=== PATIENT | female | born 1960 | race Caucasian/White ===

== ENCOUNTER → 2023-01-05 13:28 | Outpatient (CLI) | payer BC, SELFPAY ==
--- NOTE | 2023-01-05 13:30 | DI.MG.S_ITS ---
BILATERAL DIGITAL SCREENING MAMMOGRAM 3D/2D WITH CAD: 01/05/2023 CLINICAL: Routine screening. No prior exams were available for comparison. Both breasts are extremely dense, which lowers the sensitivity of mammography (category d />75% glandular tissue). Current study was also evaluated with a Computer Aided Detection (CAD) system. No significant masses, calcifications, or other findings are seen in either breast. IMPRESSION: NEGATIVE There is no mammographic evidence of malignancy. A 1 year screening mammogram is recommended. Based on the Tyrer Cuzick model (a risk assessment model) the patient's lifetime risk is 18.9% and her 10 year risk is 8.2%. According to the ACR, ACS, and NCCN guidelines, an annual breast MRI exam along with mammogram is recommended if the patient's lifetime risk is 20% or greater. This exam was interpreted at Station ID: [id number]. NOTE: For mammograms, a report in lay terms will be sent to the patient. Approximately 15% of breast malignancies will not be visualized mammographically. In the management of a palpable breast mass, a negative mammogram must not discourage biopsy of a clinically suspicious lesion. Electronically Signed By: Willian bradford/sarah:01/05/2023 17:53:37 letter sent: Normal Exam ACR BI-RADS Category 1: Negative [id number]
== END ==
PROVIDERS: PCP Family Medicine; Referring Provider Family Medicine; Visit Provider Family Medicine
DX: Z12.31 Encounter for screening mammogram for malignant neoplasm of breast (principal)
CPT/HCPCS: 77063; 77067

== ENCOUNTER → 2023-02-21 10:09 | Outpatient (CLI) | payer BC, SELFPAY ==
[2023-02-21 12:20] LABS: Add Manual Diff / Slide Review NO; Basophils Absolute Auto 0 /uL (0-100); Basophils Percent Auto 0.6 % (0-2); Eosinophils Absolute Auto 100 /uL (0-450); Hematocrit 37.3 % (36-46); Hemoglobin 12.4 g/dL (12.0-16.0); Lymphocytes Absolute Auto 1500 /uL (1100-4500); Lymphocytes Percent Auto 22.6 % (25-40); Mean Corpuscular HGB Conc 33.3 % (30-36); Mean Corpuscular Hemoglobin 29.1 PG (26-34); Mean Corpuscular Volume 87.4 fL (80-100); Monocytes Absolute Auto 400 /uL (0-900); Monocytes Percent Auto 6.2 % (3-14); Neutrophils Absolute Auto 4500 /uL (1500-7000); Neutrophils Percent Auto 68.6 % (50-75); Platelet Count 294 X10^3/uL (150-400); Red Blood Cell Count 4.27 X10^6/uL (4.0-5.2); Red Cell Distribution Width 13.9 % (11.6-14.8); White Blood Cell Count 6.5 X10^3/uL (4.5-11.0)
[2023-02-21 12:52] LABS: BUN Creatinine Ratio 21.8 (6-22); Blood Urea Nitrogen 17 mg/dL (7-17); Calcium 9.8 mg/dL (8.4-10.2); Carbon Dioxide 27 mmol/L (22-32); Chloride 102 mmol/L (98-107); Cholesterol 197 mg/dL (140-199); Estimated Glomerular Filt Rate > 60 mL/min (>60); Glucose 91 mg/dL (80-110); HDL Cholesterol 58 mg/dL (40-60); HEMOLYSIS < 15 (0-50); LDL Cholesterol Calculated 124 mg/dL (<100); Sodium 139 mmol/L (137-145); Triglycerides 77 mg/dL (35-150)
[2023-02-21 16:51] LABS: Vitamin D 25 Hydroxy (D3) 23.6 ng/mL (30.0-100.0)
[2023-02-22 15:47] LABS: Fecal Immunochemical Test Negative (Negative)
== END ==
PROVIDERS: PCP Family Medicine; Referring Provider Family Medicine; Visit Provider Family Medicine
DX: Z13.21 Encounter for screening for nutritional disorder (principal); Z13.220 Encounter for screening for lipoid disorders; Z12.11 Encounter for screening for malignant neoplasm of colon
CPT/HCPCS: 36415; 80048; 80061; 82274; 82306; 84443; 85025

== ENCOUNTER → 2023-07-06 12:20 | Outpatient (CLI) | payer BC, SELFPAY ==
--- NOTE | 2023-07-06 12:21 | DI.RAD.S_ITS ---
PROCEDURE: XR HIP W PEL IF DONE RA MIN 4V INDICATIONS: bilateral groin pain, decreased ROM TECHNIQUE: AP pelvis with lateral view(s) of the bilat hip(s). COMPARISON: None. FINDINGS: Bones: No fractures or dislocations. Pelvic ring appears intact. Severe bilateral hip joint space narrowing, subchondral sclerosis and mild flattening of the femoral heads with slight lateral subluxation, left worse than right. There is [id number] bilaterally. No suspicious bony lesions. Mild degenerative changes of the lower lumbar spine and bilateral SI joints. Soft tissues: The visualized bowel gas pattern is normal. No suspicious soft tissue calcifications. IMPRESSION: 1. No acute bony abnormality. 2. 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 Dictated by: Delmy Castillo M.D. on 07/06/2023 at 17:30 Approved by: Delmy Castillo M.D. on 07/06/2023 at 17:32
== END ==
LOC: RAD 12:21
PROVIDERS: Family Provider Family Medicine; PCP Family Medicine; Referring Provider Physician Assistant; Visit Provider Physician Assistant
DX: M47.816 Spondylosis without myelopathy or radiculopathy, lumbar region (principal); M47.818 Spondylosis without myelopathy or radiculopathy, sacral and sacrococcygeal region; R10.31 Right lower quadrant pain; R10.32 Left lower quadrant pain
CPT/HCPCS: 73522

== ENCOUNTER 2023-07-08 10:30 | Outpatient (RCR) | payer BC, SELFPAY ==
--- NOTE | 2023-06-03 18:06 | PT.OIE ---
Current Diagnoses Stiffness of right hip, not elsewhere classified (06/03/23) Stiffness of left hip, not elsewhere classified (06/03/23) Muscle weakness (generalized) (06/03/23) Segmental and somatic dysfunction of pelvic region (06/03/23) Other abnormalities of gait and mobility (06/03/23) Past Medical History (Last Updated 02/25/23 @ 11:56 by Artur Kc DO) Allergies (~1961) Asthma (~1966) Astigmatism of left eye Bilateral groin pain Eczema (~1961) Pelvic somatic dysfunction Vitamin D3 deficiency Past Surgical History (Last Reviewed 02/22/23 @ 16:29 by PAUL Rubalcava) Anesthesia History of colonoscopy (~2011) History of hand surgery (~2002) History of tonsillectomy and adenoidectomy (~1966) Visit Care Team Role Provider Type Artur Kc DO Attending Provider Physician Family Provider Primary Care Provider Referring Provider Specialty: [facility] Practice Address: [address] [place] [address] Email: Physical Therapy Initial Evaluation PT-OP-A Visit Information Start: 06/03/23 07:17 Freq: Status: Active Protocol: Document 06/03/23 09:01 LRN (Rec: 06/03/23 09:49 CLEMENCIAN [id number]) Out-Patient Physical Therapy Visit Information Visit Information Visit Type Initial Evaluation Visit Start Time 09:01 Visit Stop Time 09:47 Visit Number 1 Evaluation Information Evaluation Date 06/03/23 Precautions Precautions Allergies, Back pain, told as child she had a short RLE, but pt stopped wearing lift in her 20's. PT-OP-B Current Condition Start: 06/03/23 07:17 Freq: Status: Active Protocol: Document 06/03/23 09:01 LRN (Rec: 06/03/23 09:49 LRN [id number]) Current Condition History of Current Condition Onset Date Jan 2023 Current Complaints Mohit groin pain at crease of hips with walking, sit<>stand, bending of hips. History of Current Condition Intermittent pain in anterior hips with walking; constant pain with sit<>stand, ascending steps (less decending step) and squatting. Was told her bones are okay. Pt worked on herself with Pilates and Yoga in Nov and into Mar with daily exercise resulting in sometimes worsening of pain. Stopping exercise made it feel a little better than initial pain intensity. Pt states she is not able to walk normal and she is not walking as fast as she used to. Denies urinary leakage and constipation. In 2015 was told she had a slipped disc at L3-4 by Chiropractor and had full resolution of her R LE pain. As a child was told she had a short RLE, but she stopped wearing the lift in her 20's, because she felt the lift now made her R hip higher and without the lift she felt her hips were even. Prior Treatments and Tests None. No follow up appts with referring physician. Future Testing and Treatments Planned None. Developmental History Developmental History Went on her boat to [place] ( August-Dec) with spouse, then in Jan pain started in the anterior hips. Treatment Goals Patient/Caregiver Goals Pt goals: Sit<>stand w/o pain . Walk or ascend stairs w/o pain. HEP. Prior Functional Status Baseline Function- ADL's Independent Baseline Function- Mobility Independent Baseline Function- Gait No pain prior to Jan 2023 Baseline Function- Recreation/Hobbies Walked 6 miles x2, 3-4 x/week. Spouse noticed in October she waddled walking, which spouse thought was not her normal. Current Functional Impairments (Reported) Functional Limitations- ADL's Independent with activities but takes longer (walking, dressing, toileting) Functional Limitations- Mobility/Gait Discomfort with gait. Functional Limitations- Recreation/ Not doing any ex's. 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 Short RLE since child (L Iliac crest slightly higher in standing) PT-OP-C Subjective Start: 06/03/23 07:17 Freq: Status: Active Protocol: Document 06/03/23 09:01 CLEMENCIAN (Rec: 06/03/23 18:02 LRN [id number]) Patient Questionnaires Pelvic Pain and Urgency/Frequency Patient Symptom Scale Pelvic Pain Score 1 OP-PT Pain Assessment Location Anterior hips/groin Pain Location Details Mohit anterior hips at groin Intensity 4 Scale Used Numeric (0 - 10) Description Aching Frequency Intermittent Pain Duration while perform mostly hip flexion, ER, IR motions Pain Aggravating Factors Changing Position,Activity PT-OP-I Pelvic Floor Start: 06/03/23 07:17 Freq: Status: Active Protocol: Document 06/03/23 09:01 LRN (Rec: 06/03/23 09:49 LRN [id number]) Pelvic Floor Assessment Urine Other Urinary Symptoms None Bowel Bowel Movement Frequency Daily Cory Stool Chart Type 1-7 4 Comments Pelvic Floor Comments No palpable tenderness, tightness or muscle guarding of external perineum.. PT-OP-J Posture/Palpation/Skin Start: 06/03/23 07:17 Freq: Status: Active Protocol: Document 06/03/23 09:01 LRN (Rec: 06/03/23 09:49 LRN [id number]) Posture Evaluation Position Standing L-Spine Posture Increased Lordosis,Shifted Right Shoulder Posture (R) Elevated Scapula Posture (L) Elevated Pelvis Posture Anteriorly Tilted,(L) Iliac Crest Superior Weight Distribution Balanced Comments Posture Comments Atrophy of R christiano-scapular ms and increased tone of R UT appearing shoulder in elevation. Palpation Assessment Location Lower thoracic paraspinals Palpation Location R lower thoracic paraspinal ms Palpation Findings Soft Tissue Tightness Upper thoracic paraspinals Palpation Location Left Intrascapular ms. Palpation Findings Soft Tissue Tightness PT-OP-K Range of Motion Start: 06/03/23 07:17 Freq: Status: Active Protocol: Document 06/03/23 09:01 LRN (Rec: 06/03/23 09:49 LRN [id number]) Lumbar Spine Range of Motion Lumbar Spine Active Degrees Testing Position Standing Flexion 110 Extension 12 Rotation Left 30 Rotation Right 20 Lateral Flexion Left 15 Lateral Flexion Right 20 Hip Goniometric Range of Motion Hip Right Passive Testing Position Supine Flexion w/Knee Flexed 105 Abduction 30 Internal Rotation 10 External Rotation 30 Left Passive Testing Position Supine Flexion w/Knee Flexed 95 Abduction 15 Internal Rotation 3 External Rotation 25 PT-OP-M Strength Start: 06/03/23 07:17 Freq: Status: Active Protocol: Document 06/03/23 09:01 LRN (Rec: 06/03/23 09:49 LRN [id number]) Hip Strength Hip Manual Muscle Testing Right Extension (S1) 3 Fair Comments Strength is 3/5 except as indicated above. Left Extension (S1) 3 Fair Comments Strength is 3/5 except as indicated above. PT-OP-Q Treatments Start: 06/03/23 07:17 Freq: Status: Active Protocol: Document 06/03/23 09:01 LRN (Rec: 06/03/23 09:49 LRN [id number]) Self-Care/Home Management Treatment Education Other Education Discussed results of evaluation, and set goals, and plan of care (POC) with pt; therefore pt agreeable to goals and POC. PT-OP-T Assessment and Plan Start: 06/03/23 07:17 Freq: Status: Active Protocol: Document 06/03/23 09:01 LRN (Rec: 06/03/23 09:49 LRN [id number]) Physical Therapy Assessment Rehab Potential Rehabilitation Potential Good Evaluation Complexity Number of Personal Factors/Comorbidities 3 or More Number of Body Systems Impaired 4 or More Clinical Presentation at Evaluation Evolving Impairments Impairments Activity Tolerance,Gait,Pain, Posture,ROM,Soft Tissue Mobility,Strength,Transfers Goals Three Impairment Decreased hip ext strength and endurance. Impairment Hip extension strength is 3/5 bilaterally. Short Term Goal (STG) Improve hip extension strength to 5/5. Longterm Goal (LTG) Pt will be able to perform sit <>stand transfer hinging at the hip to elimnate pain with transfer. Two Impairment Decreased hip mobility resulting in pain with stair ambulation. Impairment Hip PROM (in deg's): Hip Flexion 95 L, 105 R; AB 15 L, 30 R; IR 3 L, 10 R; ER 25 L, 35 R. Short Term Goal (STG) Improve pt hip mobility with rotation and AB. Longterm Goal (LTG) Pt will be able to walk or ascend stairs w/o pain. HEP. One Impairment Pt lacks an independent self care HEP. Breast Splitter Goal (LTG) Pt will be independent in a self care HEP for hip and trunk mobility exercises, hip/ core strengthening, and return to an exercise program. Assessment Summary Assessment Pt is a 62 yo female who presents with no significant symptoms of PF dysfunction. Since pt felt she had not PF symptoms, evaluation was focused on her anterior hip pain. She presents with extremely limited hip mobility (flex, AB, ER, IR, L>R), along with decreased trunk R rot, L SB mobility and weakness with hip extension. Pain was not elicit with palpation of the anterior hip joint. She has standing posture changes and appears to demonstrate a slightly shorter RLE. The pt is having bilateral anterior hip pain with any flexion of the hips, passively as well as reproduction of pain with hip ROM of the restricted movements as previously mentioned. If the pt is not able to improve her hip mobility and therefore lessen her hip pain, further imaging for possible mechanical changes would be appropriate. The pt will benefit from skilled physical therapy to work towards achieving the above stated goals. Physical Therapy Plan Frequency and Duration Frequency of Treatment 1x/Week Duration of treatment (weeks) 12 Plan of Care Start Date 06/03/23 Plan of Care End Date 09/01/23 Therapeutic Interventions Therapeutic Interventions Home Exercise Program,Joint Mobilizations,Manual Therapy, Neuromuscular Re-education, Self-Care/Home Management,Soft Tissue Mobilization, Therapeutic Activities, Therapeutic Exercises Modalities Biofeedback,Cold Pack/Ice Massage,Electric Stimulation, Hot Packs Other Referrals/Consults Referrals/Consults Recommended Imaging of hip joints if physical therapy does not reduce her pain. Next Visit Focus/Plan Next Visit Plan Assess pt's pedal pulses. Assess for pelvic obliquity. Stretch into trunk R rot, L SB & ROM for hip AD, IR>ER (L>R) , and improve hip flexion. Strengthen hip extensors. POC: Rehab for stiffness of hip with pain on hip flexion positioning. Modalities: MH/Ice for pain management at end of treatment . Manual: JMT to hips and pelvic obliquity correction if needed, manual stretch to hip AD, LB, Gluts, OI, lateral hips. Sacral balancing if needed. Ex & HEP: trunk, hips.
--- NOTE | 2023-06-03 18:06 | PT.OPPOC ---
Physical, Occupational & Speech Therapy At [facility] Current Diagnoses Stiffness of right hip, not elsewhere classified (06/03/23) Stiffness of left hip, not elsewhere classified (06/03/23) Muscle weakness (generalized) (06/03/23) Segmental and somatic dysfunction of pelvic region (06/03/23) Other abnormalities of gait and mobility (06/03/23) Visit Care Team Role Provider Type Artur Kc DO Attending Provider Physician Family Provider Primary Care Provider Referring Provider Specialty: Family Practice Address: [address] [place] [address], [facility] Email: Plan Of Care PT-OP-T Assessment and Plan Start: 06/03/23 07:17 Freq: Status: Active Protocol: Document 06/03/23 09:01 LRN (Rec: 06/03/23 09:49 LRN [id number]) Physical Therapy Assessment Rehab Potential Rehabilitation Potential Good Evaluation Complexity Number of Personal Factors/Comorbidities 3 or More Number of Body Systems Impaired 4 or More Clinical Presentation at Evaluation Evolving Impairments Impairments Activity Tolerance,Gait,Pain, Posture,ROM,Soft Tissue Mobility,Strength,Transfers Goals Three Impairment Decreased hip ext strength and endurance. Impairment Hip extension strength is 3/5 bilaterally. Short Term Goal (STG) Improve hip extension strength to 5/5. Fdc Goal (LTG) Pt will be able to perform sit <>stand transfer hinging at the hip to elimnate pain with transfer. Two Impairment Decreased hip mobility resulting in pain with stair ambulation. Impairment Hip PROM (in deg's): Hip Flexion 95 L, 105 R; AB 15 L, 30 R; IR 3 L, 10 R; ER 25 L, 35 R. Short Term Goal (STG) Improve pt hip mobility with rotation and AB. Silo Man Goal (LTG) Pt will be able to walk or ascend stairs w/o pain. HEP. One Impairment Pt lacks an independent self care HEP. Fdc Goal (LTG) Pt will be independent in a self care HEP for hip and trunk mobility exercises, hip/ core strengthening, and return to an exercise program. Assessment Summary Assessment Pt is a 62 yo female who presents with no significant symptoms of PF dysfunction. Since pt felt she had not PF symptoms, evaluation was focused on her anterior hip pain. She presents with extremely limited hip mobility (flex, AB, ER, IR, L>R), along with decreased trunk R rot, L SB mobility and weakness with hip extension. Pain was not elicit with palpation of the anterior hip joint. She has standing posture changes and appears to demonstrate a slightly shorter RLE. The pt is having bilateral anterior hip pain with any flexion of the hips, passively as well as reproduction of pain with hip ROM of the restricted movements as previously mentioned. If the pt is not able to improve her hip mobility and therefore lessen her hip pain, further imaging for possible mechanical changes would be appropriate. The pt will benefit from skilled physical therapy to work towards achieving the above stated goals. Physical Therapy Plan Frequency and Duration Frequency of Treatment 1x/Week Duration of treatment (weeks) 12 Plan of Care Start Date 06/03/23 Plan of Care End Date 09/01/23 Therapeutic Interventions Therapeutic Interventions Home Exercise Program,Joint Mobilizations,Manual Therapy, Neuromuscular Re-education, Self-Care/Home Management,Soft Tissue Mobilization, Therapeutic Activities, Therapeutic Exercises Modalities Biofeedback,Cold Pack/Ice Massage,Electric Stimulation, Hot Packs Other Referrals/Consults Referrals/Consults Recommended Imaging of hip joints if physical therapy does not reduce her pain. Next Visit Focus/Plan Next Visit Plan Assess pt's pedal pulses. Assess for pelvic obliquity. Stretch into trunk R rot, L SB & ROM for hip AD, IR>ER (L>R) , and improve hip flexion. Strengthen hip extensors. POC: Rehab for stiffness of hip with pain on hip flexion positioning. Modalities: MH/Ice for pain management at end of treatment . Manual: JMT to hips and pelvic obliquity correction if needed, manual stretch to hip AD, LB, Gluts, OI, lateral hips. Sacral balancing if needed. Ex & HEP: trunk, hips. Plan of Care Dates Plan of Care Start Date 06/03/23 Plan of Care End Date 09/01/23 Electronically Signed by: Vangie Regan, PT 06/03/23 3215 If you are in agreement with this Plan of Care, please return a signed and dated copy. I have reviewed this Plan of Care and certify that the skilled therapy services above are required to meet the patient?s needs. Physician Signature Date Printed Name and Credentials Clinical Instructor Signature Printed Name and Credentials
--- NOTE | 2023-06-06 15:45 | PT.OTN ---
Current Diagnoses Stiffness of right hip, not elsewhere classified (06/06/23) Stiffness of left hip, not elsewhere classified (06/06/23) Muscle weakness (generalized) (06/06/23) Segmental and somatic dysfunction of pelvic region (06/06/23) Other abnormalities of gait and mobility (06/06/23) Physical Therapy Treatment Note PT-OP-A Visit Information Start: 06/03/23 07:17 Freq: Status: Active Protocol: Document 06/06/23 14:31 LRN (Rec: 06/06/23 15:29 LRN [id number]) Out-Patient Physical Therapy Visit Information Visit Information Visit Type Treatment Note Visit Start Time 14:31 Visit Stop Time 15:09 Visit Number 2 Evaluation Information Evaluation Date 06/03/23 Precautions Precautions Allergies, Back pain, told as child she had a short RLE, but pt stopped wearing lift in her 20's. PT-OP-B Current Condition Start: 06/03/23 07:17 Freq: Status: Active Protocol: Document 06/03/23 09:01 LRN (Rec: 06/03/23 09:49 LRN [id number]) Current Condition History of Current Condition Onset Date Jan 2023 Current Complaints Mohit groin pain at crease of hips with walking, sit<>stand, bending of hips. History of Current Condition Intermittent pain in anterior hips with walking; constant pain with sit<>stand, ascending steps (less decending step) and squatting. Was told her bones are okay. Pt worked on herself with Pilates and Yoga in Feb and into Mar with daily exercise resulting in sometimes worsening of pain. Stopping exercise made it feel a little better than initial pain intensity. Pt states she is not able to walk normal and she is not walking as fast as she used to. Denies urinary leakage and constipation. In 2015 was told she had a slipped disc at L3-4 by Chiropractor and had full resolution of her R LE pain. As a child was told she had a short RLE, but she stopped wearing the lift in her 20's, because she felt the lift now made her R hip higher and without the lift she felt her hips were even. Prior Treatments and Tests None. No follow up appts with referring physician. Future Testing and Treatments Planned None. Developmental History Developmental History Went on her boat to [place] ( August-Dec) with spouse, then in Jan pain started in the anterior hips. Treatment Goals Patient/Caregiver Goals Pt goals: Sit<>stand w/o pain . Walk or ascend stairs w/o pain. HEP. Prior Functional Status Baseline Function- ADL's Independent Baseline Function- Mobility Independent Baseline Function- Gait No pain prior to Jan 2023 Baseline Function- Recreation/Hobbies Walked 6 miles x2, 3-4 x/week. Spouse noticed in October she waddled walking, which spouse thought was not her normal. Current Functional Impairments (Reported) Functional Limitations- ADL's Independent with activities but takes longer (walking, dressing, toileting) Functional Limitations- Mobility/Gait Discomfort with gait. Functional Limitations- Recreation/ Not doing any ex's. 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 PT-OP-I Pelvic Floor Start: 06/03/23 07:17 Freq: Status: Active Protocol: Document 06/06/23 14:31 LRN (Rec: 06/06/23 15:29 LRN [id number]) Pelvic Floor Assessment Pelvic Clock Pelvic Clock Other No tenderness noted around the PF clock. Perineal Descent Resting Absent Bearing Absent Contraction Ability Manual Muscle Testing Left 0 Manual Muscle Testing Right 0 Manual Muscle Testing Anterior 1 Manual Muscle Testing Posterior 0 Muscle Endurance (Seconds) 0 Number of Quick Contractions In 10 0 Seconds PT-OP-J Posture/Palpation/Skin Start: 06/03/23 07:17 Freq: Status: Active Protocol: Document 06/03/23 09:01 LRN (Rec: 06/03/23 09:49 LRN [id number]) Posture Evaluation Position Standing L-Spine Posture Increased Lordosis,Shifted Right Shoulder Posture (R) Elevated Scapula Posture (L) Elevated Pelvis Posture Anteriorly Tilted,(L) Iliac Crest Superior Weight Distribution Balanced Comments Posture Comments Atrophy of R christiano-scapular ms and increased tone of R UT appearing shoulder in elevation. Palpation Assessment Location Lower thoracic paraspinals Palpation Location R lower thoracic paraspinal ms Palpation Findings Soft Tissue Tightness Upper thoracic paraspinals Palpation Location Left Intrascapular ms. Palpation Findings Soft Tissue Tightness PT-OP-K Range of Motion Start: 06/03/23 07:17 Freq: Status: Active Protocol: Document 06/03/23 09:01 LRN (Rec: 06/03/23 09:49 LRN [id number]) Lumbar Spine Range of Motion Lumbar Spine Active Degrees Testing Position Standing Flexion 110 Extension 12 Rotation Left 30 Rotation Right 20 Lateral Flexion Left 15 Lateral Flexion Right 20 Hip Goniometric Range of Motion Hip Right Passive Testing Position Supine Flexion w/Knee Flexed 105 Abduction 30 Internal Rotation 10 External Rotation 30 Left Passive Testing Position Supine Flexion w/Knee Flexed 95 Abduction 15 Internal Rotation 3 External Rotation 25 PT-OP-M Strength Start: 06/03/23 07:17 Freq: Status: Active Protocol: Document 06/03/23 09:01 LRN (Rec: 06/03/23 09:49 LRN [id number]) Hip Strength Hip Manual Muscle Testing Right Extension (S1) 3 Fair Comments Strength is 3/5 except as indicated above. Left Extension (S1) 3 Fair Comments Strength is 3/5 except as indicated above. PT-OP-Q Treatments Start: 06/03/23 07:17 Freq: Status: Active Protocol: Document 06/06/23 14:31 LRN (Rec: 06/06/23 15:29 LRN [id number]) Therapeutic Exercises Supine Exercises Long Hold Kegels Supine Exercise Name Long Hold PF contractions Reps/Minutes 3x Comments VCs to not clinch gluteals or abdominal ms Quick Kegels Supine Exercise Name Quick PF contractions Reps/Minutes 10x Comments VCs to not clinch gluteals or abdominal ms Hip ER stretch Supine Exercise Name BKFO w/pillow under thigh. Side bilateral Reps/Minutes 1' holds Comments Phys & VC for gentle stretch with UE's relaxed breathe to relax into stretc Lateral Hip stretch Supine Exercise Name Lateral Hip stretch Side bilateral Reps/Minutes 1' holds Comments Phys & VC for gentle stretch with UE's relaxed breathe to relax into stretc KTC stretch Supine Exercise Name KTC stretch Side bilateral Reps/Minutes 1' holds Comments Much cuing as to hand placement and to relax deltoids while doing stretch. Sitting Exercises Posture training Sitting Exercise Name Posture training for neutral spine to correct L/S R shift. Reps/Minutes 10' Comments Cued to correct L/S shift R and shoulder levels. Not able to maintain. Self-Care/Home Management Treatment Education Patient Education Home Exercise Program Activities Self-Care/Home Management Activities I/S pt in HEP: KTC, lateral hip & BKFO (hip ER) stretches. PT-OP-T Assessment and Plan Start: 06/03/23 07:17 Freq: Status: Active Protocol: Document 06/06/23 14:31 LRN (Rec: 06/06/23 15:29 LRN [id number]) Physical Therapy Assessment Rehab Potential Rehabilitation Potential Good Evaluation Complexity Number of Personal Factors/Comorbidities 3 or More Number of Body Systems Impaired 4 or More Clinical Presentation at Evaluation Evolving Impairments Impairments Activity Tolerance,Gait,Pain, Posture,ROM,Soft Tissue Mobility,Strength,Transfers Goals Four Impairment PF weakness Short Term Goal (STG) Improve awareness of proper PF contraction, with pt able to perform a contraction in isolation of substitute muscles. STG Duration 08/05/23 Data Security Administrator Goal (LTG) Improve PF contraction strength to have palpable contraction around the PF clock of 2/5. LTG Duration 09/01/23 Three Impairment Decreased hip ext strength and endurance. Impairment Hip extension strength is 3/5 bilaterally. Short Term Goal (STG) Improve hip extension strength to 5/5. STG Duration 08/05/23 Mcc Goal (LTG) Pt will be able to perform sit <>stand transfer hinging at the hip to elimnate pain with transfer. LTG Duration 09/01/23 Two Impairment Decreased hip mobility resulting in pain with stair ambulation. Impairment Hip PROM (in deg's): Hip Flexion 95 L, 105 R; AB 15 L, 30 R; IR 3 L, 10 R; ER 25 L, 35 R. Short Term Goal (STG) Improve pt hip mobility with rotation and AB. STG Duration 08/05/23 Mcc Goal (LTG) Pt will be able to walk or ascend stairs w/o pain. HEP. LTG Duration 09/01/23 One Impairment Pt lacks an independent self care HEP. Data Security Administrator Goal (LTG) Pt will be independent in a self care HEP for hip and trunk mobility exercises, hip/ core strengthening, and return to an exercise program. LTG Duration 09/01/23 Assessment Summary Assessment Pt is a 62 yo female who presents with no significant symptoms of PF dysfunction, although today with digital exam of her PF it appears that she is very weak. She is using substitute muscles to get a PF contraction of minimal onset. Because she had no PF symptoms pt focus of therapy is on her bilateral anterior hip pain. Pt posture is mildly changed with a R lateral shift of her L/S in sit/stand, probably due to a shortened R LE as she was diagnosed as child. The pt is unable to maintain posture when postural corrections are applied. Pt appears to be very aggressive with exercise as she noted she tried walking with greater stride and faster after last session resulting in increased mohit hip pain. As previouisly noted, she is extremely limited with hip mobility (flex, AB, ER, IR , L>R), along with decreased trunk R rot, L SB mobility and weakness with hip extension. She does appear to have a R innominate inflare. Pt nees to be gentle w/stretches and not overstretch into pain in order to progress. Physical Therapy Plan Frequency and Duration Frequency of Treatment 1x/Week Duration of treatment (weeks) 12 Plan of Care Start Date 06/03/23 Plan of Care End Date 09/01/23 Therapeutic Interventions Therapeutic Interventions Home Exercise Program,Joint Mobilizations,Manual Therapy, Neuromuscular Re-education, Self-Care/Home Management,Soft Tissue Mobilization, Therapeutic Activities, Therapeutic Exercises Modalities Biofeedback,Cold Pack/Ice Massage,Electric Stimulation, Hot Packs Other Referrals/Consults Referrals/Consults Recommended If the pt is not able to gain ability to get a PF contraction, EMG assessment of sacral nerves (Pudendal nerve ) would be recommended. Next Visit Focus/Plan Next Note Type Treatment Note Next Visit Plan Assess pt's pedal pulses. Assess response to stretches and correct pelvic obliquity. Issue HEP: KTC, & L>R Lat hip & BKFO stretch (IR>ER). Add hip AD stretch, & trunk R rot, L SB. Strengthen hip extensors. EStim of PF for awareness training. POC: Rehab for stiffness of hip with pain on hip flexion positioning. PF rehab for strengthening. Modalities: MH/Ice for pain management at end of treatment if pt not doing at home. Manual: JMT to hips and pelvic obliquity correction (R innomin inflare) and Sacral balancing, manual stretch to hip AD, LB, Gluts, OI, lateral hips. Ex & HEP: trunk, hips.
--- NOTE | 2023-06-09 10:23 | PT.OTN ---
Current Diagnoses Stiffness of right hip, not elsewhere classified (06/09/23) Stiffness of left hip, not elsewhere classified (06/09/23) Muscle weakness (generalized) (06/09/23) Segmental and somatic dysfunction of pelvic region (06/09/23) Other abnormalities of gait and mobility (06/09/23) Physical Therapy Treatment Note PT-OP-A Visit Information Start: 06/03/23 07:17 Freq: Status: Active Protocol: Document 06/09/23 07:31 LRN (Rec: 06/09/23 08:18 LRN [id number]) Out-Patient Physical Therapy Visit Information Visit Information Visit Type Treatment Note Visit Start Time 07:31 Visit Stop Time 08:13 Visit Number 3 Evaluation Information Evaluation Date 06/03/23 Precautions Precautions Allergies, Back pain, told as child she had a short RLE, but pt stopped wearing lift in her 20's. PT-OP-B Current Condition Start: 06/03/23 07:17 Freq: Status: Active Protocol: Document 06/03/23 09:01 LRN (Rec: 06/03/23 09:49 LRN [id number]) Current Condition History of Current Condition Onset Date Jan 2023 Current Complaints Mohit groin pain at crease of hips with walking, sit<>stand, bending of hips. History of Current Condition Intermittent pain in anterior hips with walking; constant pain with sit<>stand, ascending steps (less decending step) and squatting. Was told her bones are okay. Pt worked on herself with Pilates and Yoga in Feb and into Mar with daily exercise resulting in sometimes worsening of pain. Stopping exercise made it feel a little better than initial pain intensity. Pt states she is not able to walk normal and she is not walking as fast as she used to. Denies urinary leakage and constipation. In 2015 was told she had a slipped disc at L3-4 by Chiropractor and had full resolution of her R LE pain. As a child was told she had a short RLE, but she stopped wearing the lift in her 20's, because she felt the lift now made her R hip higher and without the lift she felt her hips were even. Prior Treatments and Tests None. No follow up appts with referring physician. Future Testing and Treatments Planned None. Developmental History Developmental History Went on her boat to [place] ( August-Dec) with spouse, then in Jan pain started in the anterior hips. Treatment Goals Patient/Caregiver Goals Pt goals: Sit<>stand w/o pain . Walk or ascend stairs w/o pain. HEP. Prior Functional Status Baseline Function- ADL's Independent Baseline Function- Mobility Independent Baseline Function- Gait No pain prior to Jan 2023 Baseline Function- Recreation/Hobbies Walked 6 miles x2, 3-4 x/week. Spouse noticed in October she waddled walking, which spouse thought was not her normal. Current Functional Impairments (Reported) Functional Limitations- ADL's Independent with activities but takes longer (walking, dressing, toileting) Functional Limitations- Mobility/Gait Discomfort with gait. Functional Limitations- Recreation/ Not doing any ex's. 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 Understands how to do the KTC stretch keeping elbows in now. PT-OP-I Pelvic Floor Start: 06/03/23 07:17 Freq: Status: Active Protocol: Document 06/06/23 14:31 LRN (Rec: 06/06/23 15:29 LRN [id number]) Pelvic Floor Assessment Pelvic Clock Pelvic Clock Other No tenderness noted around the PF clock. Perineal Descent Resting Absent Bearing Absent Contraction Ability Manual Muscle Testing Left 0 Manual Muscle Testing Right 0 Manual Muscle Testing Anterior 1 Manual Muscle Testing Posterior 0 Muscle Endurance (Seconds) 0 Number of Quick Contractions In 10 0 Seconds PT-OP-J Posture/Palpation/Skin Start: 06/03/23 07:17 Freq: Status: Active Protocol: Document 06/03/23 09:01 LRN (Rec: 06/03/23 09:49 LRN [id number]) Posture Evaluation Position Standing L-Spine Posture Increased Lordosis,Shifted Right Shoulder Posture (R) Elevated Scapula Posture (L) Elevated Pelvis Posture Anteriorly Tilted,(L) Iliac Crest Superior Weight Distribution Balanced Comments Posture Comments Atrophy of R christiano-scapular ms and increased tone of R UT appearing shoulder in elevation. Palpation Assessment Location Lower thoracic paraspinals Palpation Location R lower thoracic paraspinal ms Palpation Findings Soft Tissue Tightness Upper thoracic paraspinals Palpation Location Left Intrascapular ms. Palpation Findings Soft Tissue Tightness PT-OP-K Range of Motion Start: 06/03/23 07:17 Freq: Status: Active Protocol: Document 06/03/23 09:01 LRN (Rec: 06/03/23 09:49 LRN [id number]) Lumbar Spine Range of Motion Lumbar Spine Active Degrees Testing Position Standing Flexion 110 Extension 12 Rotation Left 30 Rotation Right 20 Lateral Flexion Left 15 Lateral Flexion Right 20 Hip Goniometric Range of Motion Hip Right Passive Testing Position Supine Flexion w/Knee Flexed 105 Abduction 30 Internal Rotation 10 External Rotation 30 Left Passive Testing Position Supine Flexion w/Knee Flexed 95 Abduction 15 Internal Rotation 3 External Rotation 25 PT-OP-M Strength Start: 06/03/23 07:17 Freq: Status: Active Protocol: Document 06/03/23 09:01 LRN (Rec: 06/03/23 09:49 LRN [id number]) Hip Strength Hip Manual Muscle Testing Right Extension (S1) 3 Fair Comments Strength is 3/5 except as indicated above. Left Extension (S1) 3 Fair Comments Strength is 3/5 except as indicated above. PT-OP-Q Treatments Start: 06/03/23 07:17 Freq: Status: Active Protocol: Document 06/09/23 07:31 LRN (Rec: 06/09/23 08:18 LRN [id number]) Cardio Equipment Recumbent Stepper (Sci-Fit) Duration (Minutes) 5 Resistance 1 Seat Position 13 Other Extra time for set up. Therapeutic Exercises Supine Exercises Hip ER stretch Supine Exercise Name BKFO w/pillow under thigh. Side bilateral Reps/Minutes 1' holds Comments Phys & VC for gentle stretch with UE's relaxed breathe to relax into stretc Lateral Hip stretch Supine Exercise Name Lateral Hip stretch Side bilateral Reps/Minutes 1' holds Comments VC to not let trunk rotate. KTC stretch Supine Exercise Name KTC stretch Side bilateral Reps/Minutes 1' holds Comments Much cuing as to hand placement and to relax deltoids while doing stretch. Sidelying Exercises Open book stretch Sidelying Exercise Name Open book stretch to R only at this time - vc I/S for HEP Side right Reps/Minutes 7' Standing Exercises R rot Standing Exercise Name R trunk rot Reps/Minutes 1' Comments Cued to not extend back and not over rotate causing L/S ext. L SB Standing Exercise Name Trunk L SB: Cued to SB L or lean against wall with R side and shift hip R. Reps/Minutes 3' Comments Extra time to answer all pt's questions regarding positioning for stretch. Other Exercises Hip flexor active stretch Other Exercise Name Walking - Hip flexor active stretch Side bilateral Reps/Minutes 5' Comments Clicking in L hip at start of swing thru phase. Manual Therapy Treatment Soft Tissue Mobilization Core Body Location R Lateral trunk stretching rotation. Mobilization Type Strumming Intensity/Depth Moderate Body Position Supine Joint Mobilizations Pelvis Joint Pelvic jts Direction Correcting L outflare and R inflare correction needed. Body Position Supine PT-OP-T Assessment and Plan Start: 06/03/23 07:17 Freq: Status: Active Protocol: Document 06/09/23 07:31 LRN (Rec: 06/09/23 08:18 LRN [id number]) Physical Therapy Assessment Goals Four Impairment PF weakness Short Term Goal (STG) Improve awareness of proper PF contraction, with pt able to perform a contraction in isolation of substitute muscles. STG Duration 08/05/23 Fpc Goal (LTG) Improve PF contraction strength to have palpable contraction around the PF clock of 2/5. LTG Duration 09/01/23 Three Impairment Decreased hip ext strength and endurance. Impairment Hip extension strength is 3/5 bilaterally. Short Term Goal (STG) Improve hip extension strength to 5/5. STG Duration 08/05/23 Fpc Goal (LTG) Pt will be able to perform sit <>stand transfer hinging at the hip to elimnate pain with transfer. LTG Duration 09/01/23 Two Impairment Decreased hip mobility resulting in pain with stair ambulation. Impairment Hip PROM (in deg's): Hip Flexion 95 L, 105 R; AB 15 L, 30 R; IR 3 L, 10 R; ER 25 L, 35 R. Short Term Goal (STG) Improve pt hip mobility with rotation and AB. STG Duration 08/05/23 Lead Technologist In [employer] Goal (LTG) Pt will be able to walk or ascend stairs w/o pain. HEP. LTG Duration 09/01/23 One Impairment Pt lacks an independent self care HEP. Fpc Goal (LTG) Pt will be independent in a self care HEP for hip and trunk mobility exercises, hip/ core strengthening, and return to an exercise program. 06/08/23: I/S in HEP: hip mobility (flex, AB, ER, IR, L> R), sidelie trunk R rot, and standing L SB (also hip shift R against wall). LTG Duration 09/01/23 progressed 06/08/23 Assessment Summary Assessment 62 yo female w/PF weakness and mohit anterior hip pain, probably due to is extremely limited hip mobility (flex, AB , ER, IR, L>R), and decreased trunk R rot, L SB mobility and weakness with hip extension. She has crepitus of the hips with clicking in the L hip with gait (start of swing thru phase), and when she lifts her L>R leg (once in awhile on the R). Pt tends to be aggressive with stretches; therefore has poor body awareness while exercising. Physical Therapy Plan Frequency and Duration Frequency of Treatment 1x/Week Duration of treatment (weeks) 12 Plan of Care Start Date 06/03/23 Plan of Care End Date 09/01/23 Next Visit Focus/Plan Next Note Type Treatment Note Next Visit Plan Assess pt's pedal pulses. Assess response to correction of pelvic obliquity (inflare on R). Issue HEP: KTC, & L>R Lat hip & BKFO stretch (IR>ER) , open book and trunk L SB/R rot stretches. Add hip AD stretch. Strengthen hip extensors. EStim of PF for awareness training. POC: Rehab for stiffness of hip with pain on hip flexion positioning. PF rehab for strengthening. Modalities: MH/Ice for pain management at end of treatment if pt not doing at home. Manual: JMT to hips and pelvic obliquity correction (R innomin inflare) and Sacral balancing, manual stretch to hip AD, LB, Gluts, OI, lateral hips. Ex & HEP: trunk, hips.
--- NOTE | 2023-06-14 09:28 | PT.OTN ---
Current Diagnoses Stiffness of right hip, not elsewhere classified (06/14/23) Stiffness of left hip, not elsewhere classified (06/14/23) Muscle weakness (generalized) (06/14/23) Segmental and somatic dysfunction of pelvic region (06/14/23) Other abnormalities of gait and mobility (06/14/23) Physical Therapy Treatment Note PT-OP-A Visit Information Start: 06/03/23 07:17 Freq: Status: Active Protocol: Document 06/14/23 07:30 LRN (Rec: 06/14/23 08:17 LRN [id number]) Out-Patient Physical Therapy Visit Information Visit Information Visit Type Treatment Note Visit Start Time 07:30 Visit Stop Time 08:15 Visit Number 4 Evaluation Information Evaluation Date 06/03/23 Precautions Precautions Allergies, Back pain, told as child she had a short RLE, but pt stopped wearing lift in her 20's. PT-OP-B Current Condition Start: 06/03/23 07:17 Freq: Status: Active Protocol: Document 06/03/23 09:01 LRN (Rec: 06/03/23 09:49 LRN [id number]) Current Condition History of Current Condition Onset Date Jan 2023 Current Complaints Mohit groin pain at crease of hips with walking, sit<>stand, bending of hips. History of Current Condition Intermittent pain in anterior hips with walking; constant pain with sit<>stand, ascending steps (less decending step) and squatting. Was told her bones are okay. Pt worked on herself with Pilates and Yoga in Feb and into Mar with daily exercise resulting in sometimes worsening of pain. Stopping exercise made it feel a little better than initial pain intensity. Pt states she is not able to walk normal and she is not walking as fast as she used to. Denies urinary leakage and constipation. In 2015 was told she had a slipped disc at L3-4 by Chiropractor and had full resolution of her R LE pain. As a child was told she had a short RLE, but she stopped wearing the lift in her 20's, because she felt the lift now made her R hip higher and without the lift she felt her hips were even. Prior Treatments and Tests None. No follow up appts with referring physician. Future Testing and Treatments Planned None. Developmental History Developmental History Went on her boat to [place] ( August-Dec) with spouse, then in Jan pain started in the anterior hips. Treatment Goals Patient/Caregiver Goals Pt goals: Sit<>stand w/o pain . Walk or ascend stairs w/o pain. HEP. Prior Functional Status Baseline Function- ADL's Independent Baseline Function- Mobility Independent Baseline Function- Gait No pain prior to Jan 2023 Baseline Function- Recreation/Hobbies Walked 6 miles x2, 3-4 x/week. Spouse noticed in October she waddled walking, which spouse thought was not her normal. Current Functional Impairments (Reported) Functional Limitations- ADL's Independent with activities but takes longer (walking, dressing, toileting) Functional Limitations- Mobility/Gait Discomfort with gait. Functional Limitations- Recreation/ Not doing any ex's. 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 Short RLE since child (L Iliac crest slightly higher in standing) PT-OP-C Subjective Start: 06/03/23 07:17 Freq: Status: Active Protocol: Document 06/14/23 07:30 LRN (Rec: 06/14/23 08:17 LRN [id number]) OP-PT Subjective Patient Comments Patient Comments Feels she has more hip AB mobility. States she has transitioned to wearing her RLE shoe lift only when going out. LBP is at a norm, felt it a little more when starting hip stretches. PT-OP-I Pelvic Floor Start: 06/03/23 07:17 Freq: Status: Active Protocol: Document 06/06/23 14:31 LRN (Rec: 06/06/23 15:29 LRN [id number]) Pelvic Floor Assessment Pelvic Clock Pelvic Clock Other No tenderness noted around the PF clock. Perineal Descent Resting Absent Bearing Absent Contraction Ability Manual Muscle Testing Left 0 Manual Muscle Testing Right 0 Manual Muscle Testing Anterior 1 Manual Muscle Testing Posterior 0 Muscle Endurance (Seconds) 0 Number of Quick Contractions In 10 0 Seconds PT-OP-J Posture/Palpation/Skin Start: 06/03/23 07:17 Freq: Status: Active Protocol: Document 06/03/23 09:01 LRN (Rec: 06/03/23 09:49 LRN [id number]) Posture Evaluation Position Standing L-Spine Posture Increased Lordosis,Shifted Right Shoulder Posture (R) Elevated Scapula Posture (L) Elevated Pelvis Posture Anteriorly Tilted,(L) Iliac Crest Superior Weight Distribution Balanced Comments Posture Comments Atrophy of R christiano-scapular ms and increased tone of R UT appearing shoulder in elevation. Palpation Assessment Location Lower thoracic paraspinals Palpation Location R lower thoracic paraspinal ms Palpation Findings Soft Tissue Tightness Upper thoracic paraspinals Palpation Location Left Intrascapular ms. Palpation Findings Soft Tissue Tightness PT-OP-K Range of Motion Start: 06/03/23 07:17 Freq: Status: Active Protocol: Document 06/03/23 09:01 LRN (Rec: 06/03/23 09:49 LRN [id number]) Lumbar Spine Range of Motion Lumbar Spine Active Degrees Testing Position Standing Flexion 110 Extension 12 Rotation Left 30 Rotation Right 20 Lateral Flexion Left 15 Lateral Flexion Right 20 Hip Goniometric Range of Motion Hip Right Passive Testing Position Supine Flexion w/Knee Flexed 105 Abduction 30 Internal Rotation 10 External Rotation 30 Left Passive Testing Position Supine Flexion w/Knee Flexed 95 Abduction 15 Internal Rotation 3 External Rotation 25 PT-OP-M Strength Start: 06/03/23 07:17 Freq: Status: Active Protocol: Document 06/03/23 09:01 LRN (Rec: 06/03/23 09:49 LRN [id number]) Hip Strength Hip Manual Muscle Testing Right Extension (S1) 3 Fair Comments Strength is 3/5 except as indicated above. Left Extension (S1) 3 Fair Comments Strength is 3/5 except as indicated above. PT-OP-Q Treatments Start: 06/03/23 07:17 Freq: Status: Active Protocol: Document 06/14/23 07:30 LRN (Rec: 06/14/23 08:17 LRN [id number]) Cardio Equipment Recumbent Stepper (Sci-Fit) Duration (Minutes) 5 Resistance 1 Seat Position 12 Other Extra time for set up. Therapeutic Exercises Supine Exercises Fig 4 stretch Supine Exercise Name Modified Fig 4 stretch (foot along side of knee of extended leg) Side bilateral Hip ER stretch Supine Exercise Name BKFO with arms in ER Side bilateral Reps/Minutes 3' holds Comments Phys & VC for gentle stretch with UE's relaxed breathe to relax into stretc Lateral Hip stretch Supine Exercise Name Lateral Hip stretch w/lateral distraction to hip jt Side bilateral Equipment Used Hips given Lateral glide during stretch Reps/Minutes 15' Comments Much extra time to determine position and lateral pull for stretch KTC stretch Supine Exercise Name KTC stretch Side bilateral Reps/Minutes 4' holds Comments Much cuing as to hand placement and to relax deltoids while doing stretch. Sidelying Exercises Open book stretch Sidelying Exercise Name Open book stretch to R only at this time - vc I/S for HEP Side right Reps/Minutes 3' Comments Cued to keep eyes/chin aligned w/arm. Self-Care/Home Management Treatment Education Patient Education Home Exercise Program Activities Self-Care/Home Management Activities Issued HEP: DKTC, LAt hip stretch, BKFO and Fig 4 stretch. PT-OP-T Assessment and Plan Start: 06/03/23 07:17 Freq: Status: Active Protocol: Document 06/14/23 07:30 LRN (Rec: 06/14/23 08:17 LRN [id number]) Physical Therapy Assessment Goals Four Impairment PF weakness Short Term Goal (STG) Improve awareness of proper PF contraction, with pt able to perform a contraction in isolation of substitute muscles. STG Duration 08/05/23 Group Home Goal (LTG) Improve PF contraction strength to have palpable contraction around the PF clock of 2/5. LTG Duration 09/01/23 Three Impairment Decreased hip ext strength and endurance. Impairment Hip extension strength is 3/5 bilaterally. Short Term Goal (STG) Improve hip extension strength to 5/5. STG Duration 08/05/23 Group Home Goal (LTG) Pt will be able to perform sit <>stand transfer hinging at the hip to elimnate pain with transfer. LTG Duration 09/01/23 Two Impairment Decreased hip mobility resulting in pain with stair ambulation. Impairment Hip PROM (in deg's): Hip Flexion 95 L, 105 R; AB 15 L, 30 R; IR 3 L, 10 R; ER 25 L, 35 R. Short Term Goal (STG) Improve pt hip mobility with rotation and AB. STG Duration 08/05/23 Group Home Goal (LTG) Pt will be able to walk or ascend stairs w/o pain. HEP. LTG Duration 09/01/23 One Impairment Pt lacks an independent self care HEP. Group Home Goal (LTG) Pt will be independent in a self care HEP for hip and trunk mobility exercises, hip/ core strengthening, and return to an exercise program. 06/08/23: I/S in HEP: hip mobility (flex, AB, ER, IR, L> R), sidelie trunk R rot, and standing L SB (also hip shift R against wall). 06/14/23: HEP issued: hip mobility(flex, AB, ER/IR) LTG Duration 09/01/23 progressed 06/08/23 Assessment Summary Assessment 62 yo female w/PF weakness and mohit anterior hip pain, probably due to is extremely limited hip mobility (flex, AB , ER, IR, L>R), and decreased trunk R rot, L SB mobility and weakness with hip extension. She is able to tolerate stretches well, but extremely limited mobility. Hip jt mob is decreased with lateral glide. Mohit Pedal pulse are normal at 60 bpm. Physical Therapy Plan Frequency and Duration Frequency of Treatment 1x/Week Duration of treatment (weeks) 12 Plan of Care Start Date 06/03/23 Plan of Care End Date 09/01/23 Next Visit Focus/Plan Next Note Type Treatment Note Next Visit Plan Assess response to correction of pelvic obliquity (inflare on R). Remeasure hip mobility . Issue HEP: open book and trunk L SB/R rot stretches. Add hip AD stretch. Strengthen hip extensors. EStim of PF for awareness training. POC: Rehab for stiffness of hip with pain on hip flexion positioning. PF rehab for strengthening. Modalities: MH/Ice for pain management at end of treatment if pt not doing at home. Manual: JMT to hips and pelvic obliquity correction (R innomin inflare) and Sacral balancing, manual stretch to hip AD, LB, Gluts, OI, lateral hips. Ex & HEP: trunk, hips.
--- NOTE | 2023-06-20 08:22 | PT.OTN ---
Current Diagnoses Stiffness of right hip, not elsewhere classified (06/20/23) Stiffness of left hip, not elsewhere classified (06/20/23) Muscle weakness (generalized) (06/20/23) Segmental and somatic dysfunction of pelvic region (06/20/23) Other abnormalities of gait and mobility (06/20/23) Physical Therapy Treatment Note PT-OP-A Visit Information Start: 06/03/23 07:17 Freq: Status: Active Protocol: Document 06/20/23 07:34 LRN (Rec: 06/20/23 08:22 LRN [id number]) Out-Patient Physical Therapy Visit Information Visit Information Visit Type Treatment Note Visit Start Time 07:34 Visit Stop Time 08:16 Visit Number 5 Evaluation Information Evaluation Date 06/03/23 Precautions Precautions Allergies, Back pain, told as child she had a short RLE, but pt stopped wearing lift in her 20's. PT-OP-B Current Condition Start: 06/03/23 07:17 Freq: Status: Active Protocol: Document 06/03/23 09:01 LRN (Rec: 06/03/23 09:49 LRN [id number]) Current Condition History of Current Condition Onset Date Jan 2023 Current Complaints Mohit groin pain at crease of hips with walking, sit<>stand, bending of hips. History of Current Condition Intermittent pain in anterior hips with walking; constant pain with sit<>stand, ascending steps (less decending step) and squatting. Was told her bones are okay. Pt worked on herself with Pilates and Yoga in Feb and into Mar with daily exercise resulting in sometimes worsening of pain. Stopping exercise made it feel a little better than initial pain intensity. Pt states she is not able to walk normal and she is not walking as fast as she used to. Denies urinary leakage and constipation. In 2015 was told she had a slipped disc at L3-4 by Chiropractor and had full resolution of her R LE pain. As a child was told she had a short RLE, but she stopped wearing the lift in her 20's, because she felt the lift now made her R hip higher and without the lift she felt her hips were even. Prior Treatments and Tests None. No follow up appts with referring physician. Future Testing and Treatments Planned None. Developmental History Developmental History Went on her boat to [place] ( August-Dec) with spouse, then in Jan pain started in the anterior hips. Treatment Goals Patient/Caregiver Goals Pt goals: Sit<>stand w/o pain . Walk or ascend stairs w/o pain. HEP. Prior Functional Status Baseline Function- ADL's Independent Baseline Function- Mobility Independent Baseline Function- Gait No pain prior to Jan 2023 Baseline Function- Recreation/Hobbies Walked 6 miles x2, 3-4 x/week. Spouse noticed in October she waddled walking, which spouse thought was not her normal. Current Functional Impairments (Reported) Functional Limitations- ADL's Independent with activities but takes longer (walking, dressing, toileting) Functional Limitations- Mobility/Gait Discomfort with gait. Functional Limitations- Recreation/ Not doing any ex's. 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 Short RLE since child (L Iliac crest slightly higher in standing) PT-OP-C Subjective Start: 06/03/23 07:17 Freq: Status: Active Protocol: Document 06/20/23 07:34 LRN (Rec: 06/20/23 08:22 LRN [id number]) OP-PT Subjective Patient Comments Patient Comments [place] hip pain more the day after last session. States 3 days ago felt good, walking downtown and no pain at end of day, but next day had pain with every step and going up/ down. PT-OP-I Pelvic Floor Start: 06/03/23 07:17 Freq: Status: Active Protocol: Document 06/06/23 14:31 LRN (Rec: 06/06/23 15:29 LRN [id number]) Pelvic Floor Assessment Pelvic Clock Pelvic Clock Other No tenderness noted around the PF clock. Perineal Descent Resting Absent Bearing Absent Contraction Ability Manual Muscle Testing Left 0 Manual Muscle Testing Right 0 Manual Muscle Testing Anterior 1 Manual Muscle Testing Posterior 0 Muscle Endurance (Seconds) 0 Number of Quick Contractions In 10 0 Seconds PT-OP-J Posture/Palpation/Skin Start: 06/03/23 07:17 Freq: Status: Active Protocol: Document 06/03/23 09:01 LRN (Rec: 06/03/23 09:49 LRN [id number]) Posture Evaluation Position Standing L-Spine Posture Increased Lordosis,Shifted Right Shoulder Posture (R) Elevated Scapula Posture (L) Elevated Pelvis Posture Anteriorly Tilted,(L) Iliac Crest Superior Weight Distribution Balanced Comments Posture Comments Atrophy of R christiano-scapular ms and increased tone of R UT appearing shoulder in elevation. Palpation Assessment Location Lower thoracic paraspinals Palpation Location R lower thoracic paraspinal ms Palpation Findings Soft Tissue Tightness Upper thoracic paraspinals Palpation Location Left Intrascapular ms. Palpation Findings Soft Tissue Tightness PT-OP-K Range of Motion Start: 06/03/23 07:17 Freq: Status: Active Protocol: Document 06/03/23 09:01 LRN (Rec: 06/03/23 09:49 LRN [id number]) Lumbar Spine Range of Motion Lumbar Spine Active Degrees Testing Position Standing Flexion 110 Extension 12 Rotation Left 30 Rotation Right 20 Lateral Flexion Left 15 Lateral Flexion Right 20 Hip Goniometric Range of Motion Hip Right Passive Testing Position Supine Flexion w/Knee Flexed 105 Abduction 30 Internal Rotation 10 External Rotation 30 Left Passive Testing Position Supine Flexion w/Knee Flexed 95 Abduction 15 Internal Rotation 3 External Rotation 25 PT-OP-M Strength Start: 06/03/23 07:17 Freq: Status: Active Protocol: Document 06/03/23 09:01 LRN (Rec: 06/03/23 09:49 LRN [id number]) Hip Strength Hip Manual Muscle Testing Right Extension (S1) 3 Fair Comments Strength is 3/5 except as indicated above. Left Extension (S1) 3 Fair Comments Strength is 3/5 except as indicated above. PT-OP-Q Treatments Start: 06/03/23 07:17 Freq: Status: Active Protocol: Document 06/20/23 07:34 LRN (Rec: 06/20/23 08:22 LRN [id number]) Cardio Equipment Recumbent Stepper (Sci-Fit) Duration (Minutes) 6 Resistance 2 Seat Position 11 Other Arms/legs. Able to tolerated more hip bend. Therapeutic Exercises Supine Exercises Fig 4 stretch Supine Exercise Name Modified Fig 4 stretch (foot along side of knee of extended leg) Side bilateral Reps/Minutes 3' Hip ER stretch Supine Exercise Name BKFO with arms in ER Side bilateral Reps/Minutes 3' holds Comments Phys & VC for gentle stretch with UE's relaxed breathe to relax into stretc Lateral Hip stretch Supine Exercise Name Lateral Hip stretch w/lateral distraction to hip jt Side bilateral Equipment Used Hips given Lateral glide during stretch Reps/Minutes 3' Comments Much extra time to determine position and lateral pull for stretch KTC stretch Supine Exercise Name KTC stretch Side bilateral Reps/Minutes 4' holds Comments Much cuing as to hand placement and to relax deltoids while doing stretch. Sitting Exercises SL hip AB stretch] Sitting Exercise Name Leg on plinth, other leg sit position Side bilateral Reps/Minutes 3' Comments Hip jt pain on sit side, not stretch in Hip AB's on L, mild stretch R. Other Exercises Hip flexor active stretch Other Exercise Name Walking - Hip flexor active stretch Side bilateral Reps/Minutes 5' Comments giving out feeling when stretching on the L side w/ gait. Manual Therapy Treatment Soft Tissue Mobilization Iliopsoas Release Body Location Mohit Iliopsoas Mobilization Type Sustained Pressure Intensity/Depth Moderate Body Position Supine Core Body Location R Lateral trunk stretching rotation. Mobilization Type Strumming,Sustained Pressure Intensity/Depth Moderate Body Position Supine PT-OP-T Assessment and Plan Start: 06/03/23 07:17 Freq: Status: Active Protocol: Document 06/20/23 07:34 LRN (Rec: 06/20/23 08:22 LRN [id number]) Physical Therapy Assessment Goals Four Impairment PF weakness Short Term Goal (STG) Improve awareness of proper PF contraction, with pt able to perform a contraction in isolation of substitute muscles. STG Duration 08/05/23 Longterm Goal (LTG) Improve PF contraction strength to have palpable contraction around the PF clock of 2/5. LTG Duration 09/01/23 Three Impairment Decreased hip ext strength and endurance. Impairment Hip extension strength is 3/5 bilaterally. Short Term Goal (STG) Improve hip extension strength to 5/5. STG Duration 08/05/23 Mast Maker Goal (LTG) Pt will be able to perform sit <>stand transfer hinging at the hip to elimnate pain with transfer. LTG Duration 09/01/23 Two Impairment Decreased hip mobility resulting in pain with stair ambulation. Impairment Hip PROM (in deg's): Hip Flexion 95 L, 105 R; AB 15 L, 30 R; IR 3 L, 10 R; ER 25 L, 35 R. Short Term Goal (STG) Improve pt hip mobility with rotation and AB. STG Duration 08/05/23 Longterm Goal (LTG) Pt will be able to walk or ascend stairs w/o pain. HEP. LTG Duration 09/01/23 One Impairment Pt lacks an independent self care HEP. Mast Maker Goal (LTG) Pt will be independent in a self care HEP for hip and trunk mobility exercises, hip/ core strengthening, and return to an exercise program. 06/08/23: I/S in HEP: hip mobility (flex, AB, ER, IR, L> R), sidelie trunk R rot, and standing L SB (also hip shift R against wall). 06/14/23: HEP issued: hip mobility(flex, AB, ER/IR) LTG Duration 09/01/23 progressed 06/08/23 Assessment Summary Assessment 62 yo female w/?PF weakness, mohit anterior hip pain probably due to is extremely limited hip mobility (flex, AB, ER, IR , L>R), and decreased trunk R rot, L SB mobility and weakness with hip extension, no obvious somatic PF dysfunction/pain, instead pain in groin. Initial PF weakness may be from pt not understanding how to perform PF contraction; but pt now feels she can do a PF contraction; therefore will assess next visit. Hip mobility on opp side of hip AD stretch limits mobility and no stretch felt in hip AD's. Physical Therapy Plan Frequency and Duration Frequency of Treatment 1x/Week Duration of treatment (weeks) 12 Plan of Care Start Date 06/03/23 Plan of Care End Date 09/01/23 Next Visit Focus/Plan Next Note Type Treatment Note Next Visit Plan Assess response to correction of pelvic obliquity (inflare on R). Remeasure hip mobility . Assess PF contraction strength and ability to perform a contraction. Issue HEP: open book and trunk L SB/ R rot stretches. Strengthen hip extensors. EStim of PF for awareness training. POC: Rehab for stiffness of hip with pain on hip flexion positioning. PF rehab for strengthening. Modalities: MH/Ice for pain management at end of treatment if pt not doing at home. Manual: JMT to hips and pelvic obliquity correction (R innomin inflare) and Sacral balancing, manual stretch to hip AD, LB, Gluts, OI, lateral hips. Ex & HEP: trunk, hips.
--- NOTE | 2023-07-01 12:15 | PT.OTN ---
Current Diagnoses Stiffness of right hip, not elsewhere classified (07/01/23) Stiffness of left hip, not elsewhere classified (07/01/23) Muscle weakness (generalized) (07/01/23) Segmental and somatic dysfunction of pelvic region (07/01/23) Other abnormalities of gait and mobility (07/01/23) Physical Therapy Treatment Note PT-OP-A Visit Information Start: 06/03/23 07:17 Freq: Status: Active Protocol: Document 07/01/23 10:36 LRN (Rec: 07/01/23 11:22 LRN [id number]) Out-Patient Physical Therapy Visit Information Visit Information Visit Type Treatment Note Visit Start Time 10:36 Visit Stop Time 11:20 Visit Number 6 Evaluation Information Evaluation Date 06/03/23 Precautions Precautions Allergies, Back pain, told as child she had a short RLE, but pt stopped wearing lift in her 20's. PT-OP-B Current Condition Start: 06/03/23 07:17 Freq: Status: Active Protocol: Document 06/03/23 09:01 LRN (Rec: 06/03/23 09:49 LRN [id number]) Current Condition History of Current Condition Onset Date Jan 2023 Current Complaints John groin pain at crease of hips with walking, sit<>stand, bending of hips. History of Current Condition Intermittent pain in anterior hips with walking; constant pain with sit<>stand, ascending steps (less decending step) and squatting. Was told her bones are okay. Pt worked on herself with Pilates and Yoga in Feb and into Mar with daily exercise resulting in sometimes worsening of pain. Stopping exercise made it feel a little better than initial pain intensity. Pt states she is not able to walk normal and she is not walking as fast as she used to. Denies urinary leakage and constipation. In 2015 was told she had a slipped disc at L3-4 by Chiropractor and had full resolution of her R LE pain. As a child was told she had a short RLE, but she stopped wearing the lift in her 20's, because she felt the lift now made her R hip higher and without the lift she felt her hips were even. Prior Treatments and Tests None. No follow up appts with referring physician. Future Testing and Treatments Planned None. Developmental History Developmental History Went on her boat to [place] ( August-Dec) with spouse, then in Jan pain started in the anterior hips. Treatment Goals Patient/Caregiver Goals Pt goals: Sit<>stand w/o pain . Walk or ascend stairs w/o pain. HEP. Prior Functional Status Baseline Function- ADL's Independent Baseline Function- Mobility Independent Baseline Function- Gait No pain prior to Jan 2023 Baseline Function- Recreation/Hobbies Walked 6 miles x2, 3-4 x/week. Spouse noticed in October she waddled walking, which spouse thought was not her normal. Current Functional Impairments (Reported) Functional Limitations- ADL's Independent with activities but takes longer (walking, dressing, toileting) Functional Limitations- Mobility/Gait Discomfort with gait. Functional Limitations- Recreation/ Not doing any ex's. 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 Short RLE since child (L Iliac crest slightly higher in standing) PT-OP-C Subjective Start: 06/03/23 07:17 Freq: Status: Active Protocol: Document 07/01/23 10:36 LRN (Rec: 07/01/23 11:22 LRN [id number]) OP-PT Subjective Patient Comments Patient Comments Thinks she needs imaging. Pain is the same, every day. Pain walking and getting up from sitting and worse ascending than descending. Mobiity in hips is a little better. PF is not the problem of her pain . Has been doing yoga and PT for a month. Patient Reported Progress Same PT-OP-I Pelvic Floor Start: 06/03/23 07:17 Freq: Status: Active Protocol: Document 07/01/23 10:36 LRN (Rec: 07/01/23 11:22 LRN [id number]) Pelvic Floor Assessment Contraction Ability Manual Muscle Testing Left 3 Manual Muscle Testing Right 3 Manual Muscle Testing Anterior 3 Manual Muscle Testing Posterior 3 Muscle Endurance (Seconds) 3 Number of Quick Contractions In 10 6 Seconds Comments Pelvic Floor Comments Long Hold: Weakens at 3 and 7 , and 8 secs of holding. PT-OP-J Posture/Palpation/Skin Start: 06/03/23 07:17 Freq: Status: Active Protocol: Document 06/03/23 09:01 LRN (Rec: 06/03/23 09:49 LRN [id number]) Posture Evaluation Position Standing L-Spine Posture Increased Lordosis,Shifted Right Shoulder Posture (R) Elevated Scapula Posture (L) Elevated Pelvis Posture Anteriorly Tilted,(L) Iliac Crest Superior Weight Distribution Balanced Comments Posture Comments Atrophy of R christiano-scapular ms and increased tone of R UT appearing shoulder in elevation. Palpation Assessment Location Lower thoracic paraspinals Palpation Location R lower thoracic paraspinal ms Palpation Findings Soft Tissue Tightness Upper thoracic paraspinals Palpation Location Left Intrascapular ms. Palpation Findings Soft Tissue Tightness PT-OP-K Range of Motion Start: 06/03/23 07:17 Freq: Status: Active Protocol: Document 07/01/23 10:36 LRN (Rec: 07/01/23 11:22 LRN [id number]) Hip Goniometric Range of Motion Hip Right Passive Testing Position Supine Flexion w/Knee Flexed 105 Abduction 30 Internal Rotation 10 External Rotation 30 Left Passive Testing Position Supine Flexion w/Knee Flexed 95 Abduction 15 Internal Rotation 3 External Rotation 25 Comments Ext: Lacks 3 deg's. PT-OP-M Strength Start: 06/03/23 07:17 Freq: Status: Active Protocol: Document 06/03/23 09:01 LRN (Rec: 06/03/23 09:49 LRN [id number]) Hip Strength Hip Manual Muscle Testing Right Extension (S1) 3 Fair Comments Strength is 3/5 except as indicated above. Left Extension (S1) 3 Fair Comments Strength is 3/5 except as indicated above. PT-OP-Q Treatments Start: 06/03/23 07:17 Freq: Status: Active Protocol: Document 07/01/23 10:36 LRN (Rec: 07/01/23 11:22 LRN [id number]) Cardio Equipment Recumbent Stepper (Sci-Fit) Duration (Minutes) 10 Resistance 2 Seat Position 11 Other Arms/legs. Able to tolerated more hip bend. Therapeutic Exercises Supine Exercises Michael stretch Supine Exercise Name Iliopsoas stretch Side bilateral Reps/Minutes 6' Comments Cuing for stretch into anterior hip of leg lowered over plinth Fig 4 stretch Supine Exercise Name Fig 4 stretch Side bilateral Reps/Minutes 3' Long Hold Kegels Supine Exercise Name Long Hold Kegel Reps/Minutes 6' Comments Holds 3, 7, & 8 secs prior to PF weakening. Pt can isolate PF contractions. Quick Kegels Supine Exercise Name Quick Kegels Reps/Minutes 4' Comments Pt contracts 6x in 10 secs. Pt can isolate PF contractions . Lateral Hip stretch Supine Exercise Name Lateral Hip stretch w/lateral distraction to hip jt Side bilateral Equipment Used Hips given Lateral glide during stretch Reps/Minutes 3' Comments Much extra time to determine position and lateral pull for stretch KTC stretch Supine Exercise Name KTC stretch Side bilateral Reps/Minutes 4' holds Comments Much cuing as to hand placement and to relax deltoids while doing stretch. Sitting Exercises Hip AD stretch Sitting Exercise Name V-sit at edge of plinth (knees flexed & straight) Side bilateral Reps/Minutes 5' Comments Extra time to determine max dior stretch SL hip AB stretch] Sitting Exercise Name Leg on plinth, other leg sit position Side bilateral Reps/Minutes 3' Comments After multiple adjustments, only minor stretch felt, discomfort on opp hip PT-OP-T Assessment and Plan Start: 06/03/23 07:17 Freq: Status: Active Protocol: Document 07/01/23 10:36 LRN (Rec: 07/01/23 11:22 LRN [id number]) Physical Therapy Assessment Goals Four Impairment PF weakness Short Term Goal (STG) Improve awareness of proper PF contraction, with pt able to perform a contraction in isolation of substitute muscles. STG Duration 08/05/23 (07/01/23: MET GOAL) Detention Goal (LTG) Improve PF contraction strength to have palpable contraction around the PF clock of 2/5. LTG Duration 09/01/23 (07/01/23: MET GOAL) Three Impairment Decreased hip ext strength and endurance. Impairment Hip extension strength is 3/5 bilaterally. Short Term Goal (STG) Improve hip extension strength to 5/5. STG Duration 08/05/23 Operations General Agent Goal (LTG) Pt will be able to perform sit <>stand transfer hinging at the hip to elimnate pain with transfer. 07/01/23: Pt able to hip hinge with transfer, but pain persists after sitting. LTG Duration 09/01/23 07/01/23 Two Impairment Decreased hip mobility resulting in pain with stair ambulation. Impairment Hip PROM (in deg's): Hip Flexion 95 L, 105 R; AB 15 L, 30 R; IR 3 L, 10 R; ER 25 L, 35 R. Short Term Goal (STG) Improve pt hip mobility with rotation and AB. 07/01/23: Hip PROM (in deg's) : Hip AB 13 L, 24 R; Hip Rot IR 10 L, 20 R; ER 30 L, 40 R. STG Duration 08/05/23 07/01/23: met for rot, not AB. Detention Goal (LTG) Pt will be able to walk or ascend stairs w/o pain. HEP. LTG Duration 09/01/23 No change 07/01/23 One Impairment Pt lacks an independent self care HEP. Operations General Agent Goal (LTG) Pt will be independent in a self care HEP for hip and trunk mobility exercises, hip/ core strengthening, and return to an exercise program. 06/08/23: I/S in HEP: hip mobility (flex, AB, ER, IR, L> R), sidelie trunk R rot, and standing L SB (also hip shift R against wall). 06/14/23: HEP issued: hip mobility(flex, AB, ER/IR). 07/01/23: HEP: Michael & sitting hip AD stretch. LTG Duration 09/01/23 progressed 07/01/23 Assessment Summary Assessment 62 yo female w/john anterior hip pain probably due to is extremely limited hip mobility (flex, AB, ER, IR, L>R), and decreased trunk R rot, L SB mobility and weakness with hip extension, no obvious somatic PF dysfunction/pain, instead pain in groin from john hip joints. Her PF strength is normal and her hip mobility has improved, but she still has john hip pain with gait and she is limited in hip mobility. HEP of hip ext and AD stretches was issued today. Pt shows tightness with hip rotation, IR>ER and flex (L > right). The pt has been very slow to improve and she shows symptoms of arthritic type pain. She has standing posture changes and demonstrate a slightly shorter RLE, which the pt states she has been told this since childhood. She has also been told she had a slipped disc at L3-4 by Chiropractor in 2016; therefore there may be a neural as well as mechanical (arthritis) component. Imaging for hip jt degeneration would be appropriate. Physical Therapy Plan Frequency and Duration Frequency of Treatment 1x/Week Duration of treatment (weeks) 12 Plan of Care Start Date 06/03/23 Plan of Care End Date 09/01/23 Next Visit Focus/Plan Next Note Type Treatment Note Next Visit Plan Pt to contract referring physician to request imaging of hips. Assess response to correction of pelvic obliquity (inflare on R). Issue HEP: open book and trunk L SB/R rot stretches . Strengthen hip extensors. EStim of PF for awareness training. POC: Rehab for stiffness of hip with pain on hip flexion positioning. Modalities: MH/Ice for pain management at end of treatment if pt not doing at home. Manual: JMT to hips and pelvic obliquity correction (R innomin inflare) and Sacral balancing, manual stretch to hip AD, LB, Gluts, OI, lateral hips. Ex & HEP: trunk, hips.
--- NOTE | 2023-07-08 15:27 | PT.OTN ---
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 Visit Start Time 10:39 Visit Stop Time 11:20 Visit Number 7 Evaluation Information Evaluation Date 06/03/23 Precautions Precautions Allergies, Back pain, told as child she had a short RLE, but pt stopped wearing lift in her 20's. PT-OP-B Current Condition Start: 06/03/23 07:17 Freq: Status: Active Protocol: Document 06/03/23 09:01 LRN (Rec: 06/03/23 09:49 LRN [id number]) Current Condition History of Current Condition Onset Date Jan 2023 Current Complaints Mohit groin pain at crease of hips with walking, sit<>stand, bending of hips. History of Current Condition Intermittent pain in anterior hips with walking; constant pain with sit<>stand, ascending steps (less decending step) and squatting. Was told her bones are okay. Pt worked on herself with Pilates and Yoga in Feb and into Mar with daily exercise resulting in sometimes worsening of pain. Stopping exercise made it feel a little better than initial pain intensity. Pt states she is not able to walk normal and she is not walking as fast as she used to. Denies urinary leakage and constipation. In 2015 was told she had a slipped disc at L3-4 by Chiropractor and had full resolution of her R LE pain. As a child was told she had a short RLE, but she stopped wearing the lift in her 20's, because she felt the lift now made her R hip higher and without the lift she felt her hips were even. Prior Treatments and Tests None. No follow up appts with referring physician. Future Testing and Treatments Planned None. Developmental History Developmental History Went on her boat to [place] ( August-Dec) with spouse, then in Jan pain started in the anterior hips. Treatment Goals Patient/Caregiver Goals Pt goals: Sit<>stand w/o pain . Walk or ascend stairs w/o pain. HEP. Prior Functional Status Baseline Function- ADL's Independent Baseline Function- Mobility Independent Baseline Function- Gait No pain prior to Jan 2023 Baseline Function- Recreation/Hobbies Walked 6 miles x2, 3-4 x/week. Spouse noticed in October she waddled walking, which spouse thought was not her normal. Current Functional Impairments (Reported) Functional Limitations- ADL's Independent with activities but takes longer (walking, dressing, toileting) Functional Limitations- Mobility/Gait Discomfort with gait. Functional Limitations- Recreation/ Not doing any ex's. 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 Short RLE since child (L Iliac crest slightly higher in standing) PT-OP-C Subjective Start: 06/03/23 07:17 Freq: Status: Active Protocol: Document 07/08/23 10:39 LRN (Rec: 07/08/23 11:22 LRN [id number]) OP-PT Subjective Patient Comments Patient Comments States she had x-rays that showed she has severe arthritis of the hip. Doing HEP 2-3x/day. Patient Questionnaires Lower Extremity Functional Scale LEFS Score 41 LEFS Impairment 40 to 59% Impaired (Score 32- 47) Pelvic Pain and Urgency/Frequency Patient Symptom Scale Pelvic Pain Score 2 OP-PT Pain Assessment Pain Assessment Grid Paper Pain Assessment Grid Completed Yes Location Anterior hips/groin Pain Location Details Mohit anterior hips at groin Intensity 6 Scale Used Numeric (0 - 10) PT-OP-I Pelvic Floor Start: 06/03/23 07:17 Freq: Status: Active Protocol: Document 07/01/23 10:36 LRN (Rec: 07/01/23 11:22 LRN [id number]) Pelvic Floor Assessment Contraction Ability Manual Muscle Testing Left 3 Manual Muscle Testing Right 3 Manual Muscle Testing Anterior 3 Manual Muscle Testing Posterior 3 Muscle Endurance (Seconds) 3 Number of Quick Contractions In 10 6 Seconds Comments Pelvic Floor Comments Long Hold: Weakens at 3 and 7 , and 8 secs of holding. PT-OP-J Posture/Palpation/Skin Start: 06/03/23 07:17 Freq: Status: Active Protocol: Document 06/03/23 09:01 LRN (Rec: 06/03/23 09:49 LRN [id number]) Posture Evaluation Position Standing L-Spine Posture Increased Lordosis,Shifted Right Shoulder Posture (R) Elevated Scapula Posture (L) Elevated Pelvis Posture Anteriorly Tilted,(L) Iliac Crest Superior Weight Distribution Balanced Comments Posture Comments Atrophy of R christiano-scapular ms and increased tone of R UT appearing shoulder in elevation. Palpation Assessment Location Lower thoracic paraspinals Palpation Location R lower thoracic paraspinal ms Palpation Findings Soft Tissue Tightness Upper thoracic paraspinals Palpation Location Left Intrascapular ms. Palpation Findings Soft Tissue Tightness PT-OP-K Range of Motion Start: 06/03/23 07:17 Freq: Status: Active Protocol: Document 07/08/23 10:39 LRN (Rec: 07/08/23 11:22 LRN [id number]) Hip Goniometric Range of Motion Hip Right Passive Testing Position Supine Flexion w/Knee Flexed 105 Abduction 30 Internal Rotation 10 External Rotation 30 PT-OP-M Strength Start: 06/03/23 07:17 Freq: Status: Active Protocol: Document 06/03/23 09:01 LRN (Rec: 06/03/23 09:49 LRN [id number]) Hip Strength Hip Manual Muscle Testing Right Extension (S1) 3 Fair Comments Strength is 3/5 except as indicated above. Left Extension (S1) 3 Fair Comments Strength is 3/5 except as indicated above. PT-OP-Q Treatments Start: 06/03/23 07:17 Freq: Status: Active Protocol: Document 07/08/23 10:39 LRN (Rec: 07/08/23 11:22 LRN [id number]) Therapeutic Exercises Supine Exercises SLR Supine Exercise Name SLR Side bilateral Reps/Minutes 2x Comments MMT taken Hip AB/AD Supine Exercise Name active strengthening AB/AD Side bilateral Reps/Minutes 10x Comments Cued to lead with heel on AB Michael stretch Supine Exercise Name Iliopsoas stretch Side bilateral Reps/Minutes 6' Comments Cuing for stretch into anterior hip of leg lowered over plinth Fig 4 stretch Supine Exercise Name Fig 4 stretch Side bilateral Reps/Minutes 3' Hip ER stretch Supine Exercise Name BKFO with arms in ER Side bilateral Reps/Minutes 3' holds Comments Phys & VC for gentle stretch with UE's relaxed breathe to relax into stretc Lateral Hip stretch Supine Exercise Name Lateral Hip stretch w/lateral distraction to hip jt Side bilateral Equipment Used Hips given Lateral glide during stretch Reps/Minutes 3' Comments Much extra time to determine position and lateral pull for stretch KTC stretch Supine Exercise Name KTC stretch Side bilateral Reps/Minutes 4' holds Comments Much cuing as to hand placement and to relax deltoids while doing stretch. Prone Exercises Hip Ext Prone Exercise Name Hip Ext Side bilateral Reps/Minutes 2x Comments MMT taken Sidelying Exercises Hip AB/AD Sidelying Exercise Name Active hip AB/AD Side bilateral Reps/Minutes 10x each Comments Cued to keep toes fwd, no swinging of foot fwd, MMT taken Sitting Exercises Trunk Flex Sitting Exercise Name Trunk Flex Reps/Minutes 5x Trunk Rot Sitting Exercise Name Trunk Rot Side right Equipment Used lv 2 TB Comments I/S pt to do bilaterally PT-OP-T Assessment and Plan Start: 06/03/23 07:17 Freq: Status: Active Protocol: Document 07/08/23 10:39 LRN (Rec: 07/08/23 11:22 LRN [id number]) Physical Therapy Assessment Goals Four Impairment PF weakness Short Term Goal (STG) Improve awareness of proper PF contraction, with pt able to perform a contraction in isolation of substitute muscles. STG Duration 08/05/23 (07/01/23: MET GOAL) Claims Attorney Goal (LTG) Improve PF contraction strength to have palpable contraction around the PF clock of 2/5. LTG Duration 09/01/23 (07/01/23: MET GOAL) Three Impairment Decreased hip ext strength and endurance. Impairment Hip extension strength is 3/5 bilaterally. Short Term Goal (STG) Improve hip extension strength to 5/5. STG Duration 08/05/23 (07/08/23: MET GOAL) Claims Attorney Goal (LTG) Pt will be able to perform sit <>stand transfer hinging at the hip to elimnate pain with transfer. 07/01/23: Pt able to hip hinge with transfer, but pain persists after sitting. 07/08/23: No change. Pain with sit<>stand and stairs. LTG Duration 09/01/23 (07/08/23: NOT MET GOAL, no change) Two Impairment Decreased hip mobility resulting in pain with stair ambulation. Impairment Hip PROM (in deg's): Hip Flexion 95 L, 105 R; AB 15 L, 30 R; IR 3 L, 10 R; ER 25 L, 35 R. Short Term Goal (STG) Improve pt hip mobility with rotation and AB. 07/01/23: Hip PROM (in deg's) : Hip AB 13 L, 24 R; Hip Rot IR 10 L, 20 R; ER 30 L, 40 R. STG Duration 08/05/23 07/01/23: Met for rot (AB ROM needed). Halfway Goal (LTG) Pt will be able to walk or ascend stairs w/o pain. HEP. LTG Duration 09/01/23 No change 07/01/23 One Impairment Pt lacks an independent self care HEP. Halfway Goal (LTG) Pt will be independent in a self care HEP for hip and trunk mobility exercises, hip/ core strengthening, and return to an exercise program. 06/08/23: I/S in HEP: hip mobility (flex, AB, ER, IR, L> R), sidelie trunk R rot, and standing L SB (also hip shift R against wall). 06/14/23: HEP issued: hip mobility(flex, AB, ER/IR). 07/01/23: HEP: Michael & sitting hip AD stretch. 07/08/23: HEP: Supine: hip AB, Sidelie hip AB/AD; Sitting trunk Rot, flex. LTG Duration 09/01/23 progressed 07/08/23 Assessment Summary Assessment Pt is a 62yo female being seen for rehab for bilateral anterior hip pain (limited in hip flex, AB, ER, IR, L>R), and decreased trunk R rot, L SB mobility and weakness with hip extension. Pt had X-rays (07/06/23) that showed severe degeneration of both hips. Pt is planning on seeking orthopedic consult for her hips. Plan on discharging pt to HEP if pt is not approved for separate PT post surgical care in order to provide her with more PT after surgical care that would be expected. Physical Therapy Plan Frequency and Duration Frequency of Treatment 1x/Week Duration of treatment (weeks) 12 Plan of Care Start Date 06/03/23 Plan of Care End Date 09/01/23 Next Visit Focus/Plan Next Note Type Treatment Note Next Visit Plan Issue HEP: open book and trunk L SB/R rot stretches ( remeasure trunk L SB/R rot) and strengthen hip extensors. Assess if pt doing last issued HEP. Add to HEP: Hip SLR, hip Ext (?ER/IR) strengthening. EStim of PF for awareness training. POC: Rehab for stiffness of hip/pain on hip flexion positioning due to severe mohit hip arthritis. DC to HEP if pt insurance will not allow for further PT post surgical. Manual: JMT to hips manual stretch to hip AD, LB, Gluts, OI, lateral hips. Ex & HEP: trunk, hips.
--- NOTE | 2023-07-14 12:10 | PT.OPDS ---
Current Diagnoses Stiffness of right hip, not elsewhere classified (07/08/23) Stiffness of left hip, not elsewhere classified (07/08/23) Muscle weakness (generalized) (07/08/23) Segmental and somatic dysfunction of pelvic region (07/08/23) Other abnormalities of gait and mobility (07/08/23) Visit Care Team Role Provider Type Artur Kc DO Attending Provider Physician Family Provider Primary Care Provider Referring Provider Specialty: [facility] Practice Address: [address] [place] [address], [facility] Email: Visit Number Visit Number 7 Discharge Summary PT-OP-B Current Condition Start: 06/03/23 07:17 Freq: Status: Active Protocol: Document 06/03/23 09:01 LRN (Rec: 06/03/23 09:49 LRN [id number]) Current Condition History of Current Condition Onset Date Jan 2023 Current Complaints John groin pain at crease of hips with walking, sit<>stand, bending of hips. History of Current Condition Intermittent pain in anterior hips with walking; constant pain with sit<>stand, ascending steps (less decending step) and squatting. Was told her bones are okay. Pt worked on herself with Pilates and Yoga in Feb and into Mar with daily exercise resulting in sometimes worsening of pain. Stopping exercise made it feel a little better than initial pain intensity. Pt states she is not able to walk normal and she is not walking as fast as she used to. Denies urinary leakage and constipation. In 2015 was told she had a slipped disc at L3-4 by Chiropractor and had full resolution of her R LE pain. As a child was told she had a short RLE, but she stopped wearing the lift in her 20's, because she felt the lift now made her R hip higher and without the lift she felt her hips were even. Prior Treatments and Tests None. No follow up appts with referring physician. Future Testing and Treatments Planned None. Developmental History Developmental History Went on her boat to [place] ( August-Dec) with spouse, then in Jan pain started in the anterior hips. Treatment Goals Patient/Caregiver Goals Pt goals: Sit<>stand w/o pain . Walk or ascend stairs w/o pain. HEP. Prior Functional Status Baseline Function- ADL's Independent Baseline Function- Mobility Independent Baseline Function- Gait No pain prior to Jan 2023 Baseline Function- Recreation/Hobbies Walked 6 miles x2, 3-4 x/week. Spouse noticed in October she waddled walking, which spouse thought was not her normal. Current Functional Impairments (Reported) Functional Limitations- ADL's Independent with activities but takes longer (walking, dressing, toileting) Functional Limitations- Mobility/Gait Discomfort with gait. Functional Limitations- Recreation/ Not doing any ex's. 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 Short RLE since child (L Iliac crest slightly higher in standing) PT-OP-C Subjective Start: 06/03/23 07:17 Freq: Status: Active Protocol: Document 07/08/23 10:39 LRN (Rec: 07/08/23 11:22 LRN [id number]) OP-PT Subjective Patient Comments Patient Comments States she had x-rays that showed she has severe arthritis of the hip. Doing HEP 2-3x/day. Patient Questionnaires Lower Extremity Functional Scale LEFS Score 41 LEFS Impairment 40 to 59% Impaired (Score 32- 47) Pelvic Pain and Urgency/Frequency Patient Symptom Scale Pelvic Pain Score 2 OP-PT Pain Assessment Pain Assessment Grid Paper Pain Assessment Grid Completed Yes Location Anterior hips/groin Pain Location Details John anterior hips at groin Intensity 6 Scale Used Numeric (0 - 10) PT-OP-I Pelvic Floor Start: 06/03/23 07:17 Freq: Status: Active Protocol: Document 07/01/23 10:36 LRN (Rec: 07/01/23 11:22 LRN [id number]) Pelvic Floor Assessment Contraction Ability Manual Muscle Testing Left 3 Manual Muscle Testing Right 3 Manual Muscle Testing Anterior 3 Manual Muscle Testing Posterior 3 Muscle Endurance (Seconds) 3 Number of Quick Contractions In 10 6 Seconds Comments Pelvic Floor Comments Long Hold: Weakens at 3 and 7 , and 8 secs of holding. PT-OP-J Posture/Palpation/Skin Start: 06/03/23 07:17 Freq: Status: Active Protocol: Document 06/03/23 09:01 LRN (Rec: 06/03/23 09:49 LRN [id number]) Posture Evaluation Position Standing L-Spine Posture Increased Lordosis,Shifted Right Shoulder Posture (R) Elevated Scapula Posture (L) Elevated Pelvis Posture Anteriorly Tilted,(L) Iliac Crest Superior Weight Distribution Balanced Comments Posture Comments Atrophy of R christiano-scapular ms and increased tone of R UT appearing shoulder in elevation. Palpation Assessment Location Lower thoracic paraspinals Palpation Location R lower thoracic paraspinal ms Palpation Findings Soft Tissue Tightness Upper thoracic paraspinals Palpation Location Left Intrascapular ms. Palpation Findings Soft Tissue Tightness PT-OP-K Range of Motion Start: 06/03/23 07:17 Freq: Status: Active Protocol: Document 07/08/23 10:39 LRN (Rec: 07/08/23 11:22 LRN [id number]) Hip Goniometric Range of Motion Hip Right Passive Testing Position Supine Flexion w/Knee Flexed 105 Abduction 30 Internal Rotation 10 External Rotation 30 PT-OP-M Strength Start: 06/03/23 07:17 Freq: Status: Active Protocol: Document 06/03/23 09:01 LRN (Rec: 06/03/23 09:49 LRN [id number]) Hip Strength Hip Manual Muscle Testing Right Extension (S1) 3 Fair Comments Strength is 3/5 except as indicated above. Left Extension (S1) 3 Fair Comments Strength is 3/5 except as indicated above. PT-OP-T Assessment and Plan Start: 06/03/23 07:17 Freq: Status: Active Protocol: Document 07/14/23 11:59 LRN (Rec: 07/14/23 12:06 LRN [id number]) Physical Therapy Assessment Goals Three Impairment Decreased hip ext strength and endurance. Impairment Hip extension strength is 3/5 bilaterally. Short Term Goal (STG) Improve hip extension strength to 5/5. STG Duration 08/05/23 (07/08/23: MET GOAL) Retirement Goal (LTG) Pt will be able to perform sit <>stand transfer hinging at the hip to elimnate pain with transfer. 07/01/23: Pt able to hip hinge with transfer, but pain persists after sitting. 07/08/23: No change. Pain with sit<>stand and stairs. LTG Duration 09/01/23 (07/08/23: NOT MET GOAL, no change) Two Impairment Decreased hip mobility resulting in pain with stair ambulation. Impairment Hip PROM (in deg's): Hip Flexion 95 L, 105 R; AB 15 L, 30 R; IR 3 L, 10 R; ER 25 L, 35 R. Short Term Goal (STG) Improve pt hip mobility with rotation and AB. 07/01/23: Hip PROM (in deg's) : Hip AB 13 L, 24 R; Hip Rot IR 10 L, 20 R; ER 30 L, 40 R. STG Duration 08/05/23 (07/14/23: Partially met goal, not met for AB ROM). Retirement Goal (LTG) Pt will be able to walk or ascend stairs w/o pain. HEP. LTG Duration 09/01/23 (07/14/23: NOT MET GOAL) One Impairment Pt lacks an independent self care HEP. Retirement Goal (LTG) Pt will be independent in a self care HEP for hip and trunk mobility exercises, hip/ core strengthening, and return to an exercise program. 06/08/23: I/S in HEP: hip mobility (flex, AB, ER, IR, L> R), sidelie trunk R rot, and standing L SB (also hip shift R against wall). 06/14/23: HEP issued: hip mobility(flex, AB, ER/IR). 07/01/23: HEP: Michael & sitting hip AD stretch. 07/08/23: HEP: Supine: hip AB, Sidelie hip AB/AD; Sitting trunk Rot, flex. LTG Duration 09/01/23 (07/08/23: MET GOAL for her current level of function at GA) Assessment Summary Assessment Pt is a 62 yo female being seen for john anterior hip pain , decreased trunk R rot, L SB mobility and weakness with hip extension rehab. The pt has recently learned she has severe degeneration of both hips and will probably have her hips replaced. Her goals were not met. She is requesting discharge from PT at this time to allow her to save her therapy treatments for post-surgical rehab. Physical Therapy Plan Discharge Physical Therapy Discharge Reasons Patient Request Discharge Comments Thank you for your referral.
== END 2023-07-20 08:15 | disposition home or self-care (01) ==
LOC: PHYS 10:30
PROVIDERS: Family Provider Family Medicine; PCP Family Medicine; Referring Provider Family Medicine; Visit Provider Family Medicine
DX: M99.05 Segmental and somatic dysfunction of pelvic region (principal); M62.81 Muscle weakness (generalized); M25.651 Stiffness of right hip, not elsewhere classified; M25.652 Stiffness of left hip, not elsewhere classified; R26.89 Other abnormalities of gait and mobility
CPT/HCPCS: 97110; 97140; 97162

== ENCOUNTER → 2023-07-19 10:44 | Outpatient (CLI) | payer BC, SELFPAY ==
[2023-07-19 11:44] LABS: Hemoglobin A1C% w Est Avg Glu 5.4 % (4.0-6.0)
[2023-07-19 11:46] LABS: Add Manual Diff / Slide Review NO; Basophils Absolute Auto 0 /uL (0-100); Basophils Percent Auto 0.6 % (0-2); Eosinophils Absolute Auto 100 /uL (0-450); Eosinophils Percent Auto 1.6 % (2-4); Hemoglobin 12.9 g/dL (12.0-16.0); Lymphocytes Absolute Auto 1500 /uL (1100-4500); Lymphocytes Percent Auto 26.2 % (25-40); Mean Corpuscular HGB Conc 33.9 % (30-36); Mean Corpuscular Volume 88.4 fL (80-100); Monocytes Absolute Auto 400 /uL (0-900); Monocytes Percent Auto 6.8 % (3-14); Neutrophils Absolute Auto 3800 /uL (1500-7000); Neutrophils Percent Auto 64.8 % (50-75); Platelet Count 293 X10^3/uL (150-400); Red Blood Cell Count 4.29 X10^6/uL (4.0-5.2); Red Cell Distribution Width 13.6 % (11.6-14.8); White Blood Cell Count 5.8 X10^3/uL (4.5-11.0)
[2023-07-19 12:05] LABS: Albumin 4.5 g/dL (3.5-5.0); BUN Creatinine Ratio 16.9 (6-22); Blood Urea Nitrogen 14 mg/dL (7-17); Calcium 9.9 mg/dL (8.4-10.2); Carbon Dioxide 28 mmol/L (22-32); Chloride 104 mmol/L (98-107); Estimated Glomerular Filt Rate > 60 mL/min (>60); Glucose 92 mg/dL (80-110); HEMOLYSIS < 15 (0-50); Potassium 4.2 mmol/L (3.4-5.1); Sodium 139 mmol/L (137-145)
[2023-07-19 12:13] LABS: Prealbumin 26.6 mg/dL (17.6-36.0); Vitamin D 25 Hydroxy (D3) 37.7 ng/mL (30.0-100.0)
== END ==
PROVIDERS: Family Provider Family Medicine; PCP Family Medicine; Referring Provider Orthopaedic Surgery Adult Reconstructive Orthopaedic Surgery; Visit Provider Orthopaedic Surgery Adult Reconstructive Orthopaedic Surgery
DX: Z01.818 Encounter for other preprocedural examination (principal); R77.0 Abnormality of albumin; E55.9 Vitamin D deficiency, unspecified; Z01.812 Encounter for preprocedural laboratory examination; R73.9 Hyperglycemia, unspecified
CPT/HCPCS: 36415; 80048; 82040; 82306; 83036; 84134; 85025; 93005

== ENCOUNTER → 2023-08-02 06:39 | Outpatient (CLI) | payer BC, SELFPAY ==
--- NOTE | 2023-08-02 06:40 | DI.US.S_ITS ---
PROCEDURE: US CAROTID DOPPLER BI INDICATIONS: LEFT BRUIT TECHNIQUE: Color and pulse Doppler interrogation was performed of both carotid systems, with image documentation and velocity measurements. COMPARISON: None. FINDINGS: Stenosis calculations are based on SRU (Society of Radiologists in Ultrasound) criteria. Right side: Brachial blood pressure: 118/71 mm Hg. Common carotid artery peak systolic velocity: 84 cm/sec. Internal carotid artery peak systolic velocity: 68 cm/sec. Internal carotid artery end diastolic velocity: 9.0 cm/sec. External carotid artery peak systolic velocity: 87 cm/sec. ICA/CCA peak systolic ratio: 0.8 . Barbosa scale imaging description: Mild atheromatous plaque is present. Percent internal carotid artery stenosis: Less than 50% stenosis. Vertebral artery: Flow direction is antegrade. Left side: Brachial blood pressure: 117/70 mm Hg. Common carotid artery peak systolic velocity: 120 cm/sec. Internal carotid artery peak systolic velocity: 49 cm/sec. Internal carotid artery end diastolic velocity: 19 cm/sec. External carotid artery peak systolic velocity: 95 cm/sec. ICA/CCA peak systolic ratio: 0.4 . Barbosa scale imaging description: Mild atheromatous plaque is present. Percent internal carotid artery stenosis: Less than 50% stenosis.. Vertebral artery: Flow direction is antegrade. IMPRESSION: Less than 50% stenosis of the bilateral internal carotid arteries. Dictated by: Vangie Gomez M.D. on 08/02/2023 at 10:02 Approved by: Vangie Gomez M.D. on 08/02/2023 at 10:04
== END ==
LOC: US 06:40
PROVIDERS: Family Provider Family Medicine; PCP Family Medicine; Referring Provider Family Medicine; Visit Provider Family Medicine
DX: R09.89 Other specified symptoms and signs involving the circulatory and respiratory systems (principal); I65.23 Occlusion and stenosis of bilateral carotid arteries
CPT/HCPCS: 93880

== ENCOUNTER 2023-09-08 09:24 | Day surgery (SDC) | payer BC, SELFPAY ==
[2023-08-29 08:39] VITALS: BMI 22.2
[2023-09-08] VITALS (11 sets, daily range): BP systolic 97–126; BP diastolic 40–77; PULSE 60–85; RESP 12–18; TEMP 36.3–36.8; O2SAT 95–100; BMI 21.7
--- NOTE | 2023-09-08 | DI.RAD.S_ITS ---
PROCEDURE: XR HIP W PEL IF DONE RT 4V INDICATIONS: INTRA OP TOTAL RIGHT ANTERIOR HIP TECHNIQUE: Intraoperative fluoroscopic views of the right hip acquired. COMPARISON: [facility], CR, XR PELVIS WITH BILATERAL LATERAL HIPS, 07/18/2023, 17:47. [facility], CR, [id number] W PEL IF PERFORMED, 09/08/2023, 12:15. FINDINGS: Intraoperative fluoroscopic images shows right total hip arthroplasty in progress. Right hip alignment is anatomic. IMPRESSION: Fluoro guidance was provided intraoperatively for right total hip arthroplasty. Dictated by: Tobin Rea M.D. on 09/08/2023 at 17:15 Approved by: Tobin Rea M.D. on 09/08/2023 at 17:17
--- NOTE | 2023-09-08 | DI.RAD.S_ITS ---
PROCEDURE: [id number] W PEL IF PERFORMED INDICATIONS: INTRA OP TOTAL LEFT TECHNIQUE: 4 operative C-arm images COMPARISON: [facility], CR, XR HIP W PEL IF DONE RA 3TO4V, 07/06/2023, 12:31. FINDINGS: C-arm imaging utilized for performance of total left hip arthroplasty. No radiographic evidence of complications. IMPRESSION: C-arm imaging utilized for total left hip arthroplasty. Dictated by: Andrew Ozuna M.D. on 09/08/2023 at 16:55 Approved by: Andrew Ozuna M.D. on 09/08/2023 at 16:59
--- NOTE | 2023-09-08 06:00 | DI.RAD.S_ITS ---
PROCEDURE: XR HIP W PEL IF DONE LT MIN 4V INDICATIONS: BILAT TIM POST UP TECHNIQUE: AP pelvis and lateral view of the hip acquired. COMPARISON: [facility], CR, XR PELVIS WITH BILATERAL LATERAL HIPS, 07/18/2023, 17:47. [facility], [place], XR HIP W PEL IF DONE RA 3TO4V, 07/06/2023, 12:31. [facility], [place], XR HIP W PEL IF DONE RT 4V, 09/08/2023, 13:51. [facility], [place], [id number] W PEL IF PERFORMED, 09/08/2023, 12:15. FINDINGS: Bones: Patient is status post bilateral hip arthroplasty, with hardware components in expected positions. The hip joint appears congruent. The visualized bony structures appear intact. Soft tissues: Overlying postoperative changes are noted. No suspicious soft tissue densities. IMPRESSION: Expected post-operative appearance of a hip arthroplasty. Dictated by: Shazia Sheffield M.D. on 09/08/2023 at 15:21 Approved by: Shazia Sheffield M.D. on 09/08/2023 at 15:21
[2023-09-08] MEDS: ACETAMINOPHEN 325 MG TABLET 975 MG PO (09:42)
[2023-09-08] MEDS: LACTATED RINGERS 1,000 ML 42 ML IV ×2 (09:42→12:17)
[2023-09-08] MEDS: MELOXICAM 7.5 MG TABLET PO (09:42)
--- NOTE | 2023-09-08 10:06 | PM.PREOP ---
Pre-operative Note Interval Note History & Physical reviewed/Exam performed by Physician: Yes Changes to H&P: No
[2023-09-08] MEDS: TRANEXAMIC ACID 1,000 MG VIAL 1000 MG INJ (10:50)
[2023-09-08] MEDS: CEFAZOLIN 2 GM/100 ML PREMIX 100 ML IV ×2 (10:50→20:13)
--- NOTE | 2023-09-08 11:38 | SUR.OPER ---
Supine on padded Ong table with bilateral legs secured in padded positioning boots and suspended in positioning spars, operative leg in traction per surgeon. Head on one pillow. Arms on on padded armboards <90 degrees abduction. Padded perineal post in place per surgeon.
[2023-09-08] MEDS: ROPIVACAINE/EPI/CLONIDINE/KET 50 ML SYRINGE INJ (12:09)
[2023-09-08] MEDS: ALBUMIN HUMAN 12.5 GM/250 ML VIAL IV (12:13)
--- NOTE | 2023-09-08 14:22 | PM.OP.1 ---
Operative Date/Time/Diagnoses Date of procedure: 09/08/23 Pre-op diagnosis: Primary right hip osteoarthritis Primary left hip osteoarthritis Post-op diagnosis: same Procedure & Clinicians Procedure: Right total hip arthroplasty Left total hip arthroplasty Same procedure as scheduled: Yes Surgeon: Carlos Redman Insurance Billing Clerk: Artur Martins Anesthesia Type: General and Local Operative Notes Estimated Blood Loss (mL): 450 Procedure in detail: Procedure summary: 62-year-old female patient seen in evaluation for severe bilateral hip pain. She had radiographic findings which correlated with physical exam findings consistent with severe hip arthritis and wished to proceed with total hip arthroplasty. I counseled her regarding my usual practice which is to stagger total hip arthroplasties 3 months apart, however the patient was very interested in the possibility of bilateral total hip arthroplasties. I counseled her that if this was her desire, I was willing to proceed with that plan to attempt to limit her convalescence time. In order to limit the affects of blood loss from bilateral total hip arthroplasties, in previous operations at this hospital I have utilized cell Saver to allow for transfusion of the blood loss during the procedure. The patient was booked to have this during her surgery and arrangements had been made with the company that provides the technology for them to be present during today's surgery. In the lead up to the procedure however the director of the blood bank at this hospital determined that because we do not have a formal autologous blood transfusion policy she would not allow the patient to have cell Saver for today's procedure. This decision was made approximately 1 week prior to today's surgery. I explained in detail the patient's safety considerations involved in using cell Saver to minimize the impact of her blood loss and allow for bilateral surgeries. The director of the blood bank felt that the need for an official policy outweighed these patient safety considerations however. Because of the inability to utilize cell Saver technology during today's surgery I discussed cancelling the surgery with the patient. She was given the option of using autologous blood banking to allow for transfusion of her own blood however this would require an estimated 4 weeks to replenish her hemoglobin and at the time that it was determined we would not be allowed to use cell Saver during her surgery today there was only a week remaining before her surgery. I provided her the options of delaying the surgery or attempting to perform the bilateral hips today with the understanding that this would decrease the likelihood I would be successful in doing so. In order to attempt to minimize any blood loss during today's procedure I did use a werewolf bipolar electrocautery device as well as having hemostatic agents available should they be required. I counseled the patient extensively regarding the risk of periprosthetic joint infection associated with allogenic red blood cell transfusion and counseled her that if I had high blood loss during the 1st hip I would abort and not perform the 2nd hip. Intraoperatively I had templated for size 52 cups on both sides however the femoral head on the 1st side, which was the left side, measured 54 mm. I therefore placed a 60 mm cup. She had very high offset on both hips so I plan to not ream all the way to the acetabular floor, use an offset liner, and use a high offset stem. I was able to achieve a broaching position without conjoined tendon release. I had initially templated for a size 4 stem with a +8.5 head however I was able to broach up to a size 6 which increased my neck size. I therefore trialed with a +5 head. This gave me slight lengthening relative to the contralateral side. I was unable to dislocate the hip with maximum external rotation, the hip was stable with 45 degree drop test, and the broach had appropriate canal fill on both AP and lateral fluoroscopic images. I therefore placed these implants on the left side and repeated the trialing and fluoroscopic process to ensure appropriate parameters. At this point in the procedure I consulted with our anesthesiologist. We estimated that the patient had lost approximately 200 mL of blood during the 1st side. She had remained hemodynamically stable. We administered 500 mL of albumin in order to maintain normotensive pressures and agreed that it was safe to proceed with the 2nd side. On the 2nd side, which was the right side, the head measured 52 mm so I initially attempted to ream for a 58 mm cup however this was loose within the acetabulum so I upsized to a size 59 Reamer and reamed under fluoroscopy to place it in a similar position to the left side. I placed the same lateralized liner, and again was able to manipulate the femur into an appropriate broaching position without a conjoined tendon release. I broached up to the same size 6 stem, and trialed with a high offset neck and a +5 head to match the contralateral side. This was appropriate in all parameters. I returned to the broaching position and noted that the broach was slightly loose within the femoral canal. I therefore think it further down and repeated the calcar planing. I did at this point in time place a final size 6 high offset stem and repeated trialing once more with a +5 head trial to ensure that the additional calcar planing had not affected leg length or stability. There had been minimal additional depth with the broach and all parameters remained appropriate. I was unable to dislocate the right hip. The hip was stable with a 45 degree drop test. Leg lengths appeared appropriate on an AP fluoroscopic image using a straight metal bar to limit the effect of fluoroscopic distortion while measuring across the trans ischial line. We estimated a total blood loss for the combined sides of 450 mm, 200 mL on the left hip and 250 mL on the right hip. Left Uncemented Direct Anterior Total Hip Arthroplasty: Implants: Left Depuy Total Hip Arthroplasty: Depuy [place] Gription size 60 cup?with +4 lateralized liner Depuy Actis femoral stem size 6 high offset? Under 6 mm +5 ceramic femoral head? Procedure in Detail: This patient was seen preoperatively and evaluated for hip pain which was refractory to numerous nonoperative treatment modalities. Their hip pain correlated with radiographic changes demonstrating significant degeneration in the hip joint. The risks and benefits of continued nonoperative management versus operative management were discussed at length and all of the patient?s questions were answered. Additional educational materials providing further details beyond our discussion in clinic were provided via a publicly available patient education video which included the incidence of medical complications associated with total hip arthroplasty, reasons for revision following total hip arthroplasty, and patient satisfaction rates following total hip arthroplasty. That video can be accessed at [email or web address] . With this understanding of the risks inherent to the procedure, the patient elected to move forward with operative management. Following preoperative optimization, the patient was scheduled for surgery. The patient was met in the preoperative holding area the day of the procedure and all questions were answered. The patient?s nares were swabbed with betadine in order to decolonize them from MRSA. Informed consent was signed and the operative limb was marked with indelible ink with a 1 on the left side to indicate this would be replaced first and a 2 on the right side to indicate this would be replaced second.?The patient was brought back to the operating room where anesthesia was induced. The patient was transferred to the [place] table and all bony prominences were padded. The operative site was prepped and draped in the usual sterile fashion. Prior to incision, tranexamic acid and cefazolin were administered. Operative templating images were displayed demonstrating the anticipated implant sizes and correct operative extremity. A timeout procedure was performed verifying the patient?s identity, medical comorbidities, allergies, relevant medications, anesthesia type and the surgical plan. All present were in agreement. The assistance of a physician cardiovascular physician assistant was required for positioning, room setup, soft tissue retraction and wound closure. Without this assistance, the procedure would have been significantly more challenging and time consuming.?? A direct anterior approach to the hip was utilized. This was performed with a longitudinal incision through a Heuter interval. The incision was planned 2 cm distal and 2 cm lateral to the ASIS extending towards the lateral patella, in line with the muscle body of the TFL. Following incision, the subcutaneous tissue was dissected while taking care to avoid injury to the lateral femoral cutaneous nerve. The fascia overlying the TFL was identified by dissecting off the overlying fat and identifying perforating vessels to the TFL. The TFL fascia was incised and dissected away from the medial border of the TFL. A cobra retractor was placed over the superior femoral neck between the abductors and the hip capsule and used to reflect the TFL laterally. A [place] self-retainer was then placed in the distal aspect of the wound between the TFL and the rectus femoris. This was tensioned to open up the direct anterior interval and the lateral circumflex vessels were identified and coagulated using electrocautery. The floor of the TFL fascia was incised, exposing the pericapsular fat overlying the hip capsule. A second cobra retractor was placed on the inferior femoral neck. A double-bent soft tissue retractor was placed on the anterior wall of the acetabulum and used to tension the reflected head of rectus femoris, which was then released in order to limit soft tissue tension. A capsulotomy was made in the midline of the anterior hip capsule in line with the femoral neck ending at the vastus tubercle. The double-bent retractor was removed in order to limit the amount of time that a soft tissue retractor remained on the anterior wall and protect the femoral nerve. Tag stitches were placed in the superior and inferior leaflets of the hip capsule. An Ko soft tissue retractor was introduced over the tag stitches and tensioned in the interval between the rectus femoris and the TFL in order to retract and protect those muscles. The cobra retractors were replaced intracapsularly, with one over the superior neck in the pocket created by the base of the greater trochanter and the other on the femoral head. The capsulotomy was extended laterally to the base of the greater trochanter and medially to the lesser trochanter. This required externally rotating the hip. Once the lesser trochanter had been identified, a neck cut was planned according to measurements from preoperative templating. A ruler was cut at the length measured between the superior aspect of the lesser trochanter and the collar of the prosthesis. This line was extended towards the inferior aspect of the lateral cobra retractor to plan a cut which would leave minimal residual femoral neck laterally. The neck was cut at 60 degrees of external rotation along that line. A second cut was performed to remove a large napkin ring and facilitate head extraction. The napkin ring cut and femoral head were removed.?? A broad anterior wall retractor was placed between the labrum and the anterior capsule so that the anterior capsule would prevent capturing and pinching the femoral nerve anteriorly. An additional retractor was placed on the posterior wall. External rotation and traction were applied through the [place] table so that the cut surface of the femoral neck would not restrict access to the acetabulum. The labrum was excised sharply and the pulvinar was excised with electrocautery to limit bleeding from branches of the obturator artery. Acetabular reamers were selected based on preoperative templating and measurements of the excised femoral head. These were introduced into the acetabulum. Fluoroscopy was utilized to replicate a standing AP pelvis radiograph by centering over the pelvis, rotating until there was appropriate symmetry between the obturator foramen, and introducing caudal tilt to match the position of the pubic symphysis relative to the sacrococcygeal junction according to the patient?s anatomy. Fluoroscopy was utilized to ensure appropriate reaming depth. Once satisfied with the reaming depth corresponding to the preoperative template and the pinch fit between the columns, an appropriate sized acetabular cup was selected which would provide 1 mm of press-fit. This cup was introduced and manipulated until appropriate abduction and anteversion angles were obtained with careful attention to appropriate abduction and anteversion angles as evaluated by the position of the cup relative to the anterior and posterior jones of the acetabulum and the AP fluoroscopy which recreated the patient?s standing radiograph. The cup was impacted into place. Peripheral osteophytes were removed. The acetabular liner was then placed with care to ensure locking of the locking mechanism.? Attention was then turned to the femur. All retractors were removed, traction was released, a retractor was placed in the interval between the hip capsule and the gluteus minimus, and the hip was externally rotated to 90 degrees. Traction was applied through the [place] table to tension the lateral capsule and this was released using electrocautery. Traction was released and a [place] hook was placed posteriorly around the proximal femur at the level of the vastus ridge. The table height was lowered in order to restrict the tension on the anterior structures during hip hyperextension to limit the risk of femoral nerve palsy. With traction off and the hip at 90 degrees of external rotation, the hip was hyperextended and adducted while manually elevating the femur away from the acetabulum with the [place] hook to ensure it would not be caught behind the greater trochanter. An asymmetric retractor was placed over the calcar and a broad double-pronged retractor was placed over the greater trochanter. The tag stitch capturing the lateral leaflet of the capsule was moved to the medial side, leaving the conjoined and piriformis tendons isolated in the face of the greater trochanter. The hip was externally rotated and elevated. A release of the conjoined tendon was necessary in order to obtain adequate exposure for broaching. The canal was opened with an opening broach and a rasp was used to remove cancellous bone. A rongeur was used to remove the residual lateral bone at the base of the greater trochanter to avoid placing the stem in varus. The femur was then broached to the appropriate sized stem yielding good rotational fit and fill of the canal as well as appropriate version of the stem trial. Neck and head trials were placed, all retractors were removed and the hip was returned to neutral abduction and extension. I then reduced the hip. An AP pelvis fluoroscopic image matching the preoperative standing radiograph was obtained with both lesser trochanters visible and both hips in 40 degrees of external rotation. This demonstrated that it was slightly long relative to the contralateral side which I planned to replace subsequently. An AP hip fluoroscopic image was obtained with the hip in neutral rotation which demonstrated appropriate canal fill. Hip stability was evaluated with maximum external rotation and a 45 degree drop test which demonstrated no instability. The hip was dislocated and I returned to the broaching position. The definitive stem was placed and the trunnion was cleaned and dried. I placed a ceramic head onto the trunnion and impacted it into place on the Johnson taper.?? All retractors were removed and the hip was reduced. A dilute mixture of betadine and peroxide was used to bathe the soft tissues during final fluoroscopic assessment. Appropriate component positioning was confirmed on an AP pelvis radiograph with the operative and nonoperative legs in 40 degrees of external rotation, evaluating leg length and offset. Appropriate stem fill was evaluated on an AP hip radiograph with the operative leg in neutral rotation. No fractures were identified on these radiographs. Stability was satisfactory with maximum external rotation as well as a 45 degree drop test. The hip was copiously irrigated with pulse lavage. The capsule was closed with absorbable interrupted suture. The TFL fascia was closed with barbed suture while carefully protecting the lateral femoral cutaneous nerve from entrapment. A mixture of Ropivacaine, Epinephrine, Clonidine and Toradol was infiltrated throughout the soft tissues. The skin was closed with 2-0 and 3-0 sutures. Surgical glue was applied and a soft dressing was placed.??The sponge, instrument and needle counts were reported as being correct at the end of the case.??No obvious complications occurred. Fluoroscopy was temporarily removed from the room to allow for instrument tables to be transitioned to the contralateral side. Bed attachments for the 3seventy system were transferred to the contralateral sides. New disposable instruments were brought up. I consulted with anesthesia who felt that it was appropriate to proceed with the 2nd side. Right Uncemented Direct Anterior Total Hip Arthroplasty: Implants: Right Depuy Total Hip Arthroplasty: Depuy [place] Gription size 60 cup?with +4 lateralized liner Depuy Actis femoral stem size 6 high offset? Under 6 mm +5 ceramic femoral head? Procedure in Detail: A direct anterior approach to the hip was utilized. This was performed with a longitudinal incision through a Heuter interval. The incision was planned 2 cm distal and 2 cm lateral to the ASIS extending towards the lateral patella, in line with the muscle body of the TFL. Following incision, the subcutaneous tissue was dissected while taking care to avoid injury to the lateral femoral cutaneous nerve. The fascia overlying the TFL was identified by dissecting off the overlying fat and identifying perforating vessels to the TFL. The TFL fascia was incised and dissected away from the medial border of the TFL. A cobra retractor was placed over the superior femoral neck between the abductors and the hip capsule and used to reflect the TFL laterally. A [place] self-retainer was then placed in the distal aspect of the wound between the TFL and the rectus femoris. This was tensioned to open up the direct anterior interval and the lateral circumflex vessels were identified and coagulated using electrocautery. The floor of the TFL fascia was incised, exposing the pericapsular fat overlying the hip capsule. A second cobra retractor was placed on the inferior femoral neck. A double-bent soft tissue retractor was placed on the anterior wall of the acetabulum and used to tension the reflected head of rectus femoris, which was then released in order to limit soft tissue tension. A capsulotomy was made in the midline of the anterior hip capsule in line with the femoral neck ending at the vastus tubercle. The double-bent retractor was removed in order to limit the amount of time that a soft tissue retractor remained on the anterior wall and protect the femoral nerve. Tag stitches were placed in the superior and inferior leaflets of the hip capsule. An Ko soft tissue retractor was introduced over the tag stitches and tensioned in the interval between the rectus femoris and the TFL in order to retract and protect those muscles. The cobra retractors were replaced intracapsularly, with one over the superior neck in the pocket created by the base of the greater trochanter and the other on the femoral head. The capsulotomy was extended laterally to the base of the greater trochanter and medially to the lesser trochanter. This required externally rotating the hip. Once the lesser trochanter had been identified, a neck cut was planned according to measurements from preoperative templating. A ruler was cut at the length measured between the superior aspect of the lesser trochanter and the collar of the prosthesis. This line was extended towards the inferior aspect of the lateral cobra retractor to plan a cut which would leave minimal residual femoral neck laterally. The neck was cut at 60 degrees of external rotation along that line. A second cut was performed to remove a large napkin ring and facilitate head extraction. The napkin ring cut and femoral head were removed.?? A broad anterior wall retractor was placed between the labrum and the anterior capsule so that the anterior capsule would prevent capturing and pinching the femoral nerve anteriorly. An additional retractor was placed on the posterior wall. External rotation and traction were applied through the [place] table so that the cut surface of the femoral neck would not restrict access to the acetabulum. The labrum was excised sharply and the pulvinar was excised with electrocautery to limit bleeding from branches of the obturator artery. Acetabular reamers were selected based on preoperative templating and measurements of the excised femoral head. These were introduced into the acetabulum. Fluoroscopy was utilized to replicate a standing AP pelvis radiograph by centering over the pelvis, rotating until there was appropriate symmetry between the obturator foramen, and introducing caudal tilt to match the position of the pubic symphysis relative to the sacrococcygeal junction according to the patient?s anatomy. Fluoroscopy was utilized to ensure appropriate reaming depth. Once satisfied with the reaming depth corresponding to the preoperative template and the pinch fit between the columns, an appropriate sized acetabular cup was selected which would provide 1 mm of press-fit. This cup was introduced and manipulated until appropriate abduction and anteversion angles were obtained with careful attention to appropriate abduction and anteversion angles as evaluated by the position of the cup relative to the anterior and posterior jones of the acetabulum and the AP fluoroscopy which recreated the patient?s standing radiograph. The cup was impacted into place. Peripheral osteophytes were removed. The acetabular liner was then placed with care to ensure locking of the locking mechanism.? Attention was then turned to the femur. All retractors were removed, traction was released, a retractor was placed in the interval between the hip capsule and the gluteus minimus, and the hip was externally rotated to 90 degrees. Traction was applied through the [place] table to tension the lateral capsule and this was released using electrocautery. Traction was released and a [place] hook was placed posteriorly around the proximal femur at the level of the vastus ridge. The table height was lowered in order to restrict the tension on the anterior structures during hip hyperextension to limit the risk of femoral nerve palsy. With traction off and the hip at 90 degrees of external rotation, the hip was hyperextended and adducted while manually elevating the femur away from the acetabulum with the [place] hook to ensure it would not be caught behind the greater trochanter. An asymmetric retractor was placed over the calcar and a broad double-pronged retractor was placed over the greater trochanter. The tag stitch capturing the lateral leaflet of the capsule was moved to the medial side, leaving the conjoined and piriformis tendons isolated in the face of the greater trochanter. The hip was externally rotated and elevated. A release of the conjoined tendon was necessary in order to obtain adequate exposure for broaching. The canal was opened with an opening broach and a rasp was used to remove cancellous bone. A rongeur was used to remove the residual lateral bone at the base of the greater trochanter to avoid placing the stem in varus. The femur was then broached to the appropriate sized stem yielding good rotational fit and fill of the canal as well as appropriate version of the stem trial. Neck and head trials were placed, all retractors were removed and the hip was returned to neutral abduction and extension. I then reduced the hip. An AP pelvis fluoroscopic image matching the preoperative standing radiograph was obtained with both lesser trochanters visible and both hips in 40 degrees of external rotation. This demonstrated that it was slightly long relative to the contralateral side which I planned to replace subsequently. An AP hip fluoroscopic image was obtained with the hip in neutral rotation which demonstrated appropriate canal fill. Hip stability was evaluated with maximum external rotation and a 45 degree drop test which demonstrated no instability. The hip was dislocated and I returned to the broaching position. The definitive stem was placed and the trunnion was cleaned and dried. I placed a ceramic head onto the trunnion and impacted it into place on the Johnson taper.?? All retractors were removed and the hip was reduced. A dilute mixture of betadine and peroxide was used to bathe the soft tissues during final fluoroscopic assessment. Appropriate component positioning was confirmed on an AP pelvis radiograph with the operative and nonoperative legs in 40 degrees of external rotation, evaluating leg length and offset. Appropriate stem fill was evaluated on an AP hip radiograph with the operative leg in neutral rotation. No fractures were identified on these radiographs. Stability was satisfactory with maximum external rotation as well as a 45 degree drop test. The hip was copiously irrigated with pulse lavage. The capsule was closed with absorbable interrupted suture. The TFL fascia was closed with barbed suture while carefully protecting the lateral femoral cutaneous nerve from entrapment. A mixture of Ropivacaine, Epinephrine, Clonidine and Toradol was infiltrated throughout the soft tissues. The skin was closed with 2-0 and 3-0 sutures. Surgical glue was applied and a soft dressing was placed.??The sponge, instrument and needle counts were reported as being correct at the end of the case.??No obvious complications occurred. The patient was transferred from the [place] table back to a stretcher. The patient emerged from anesthesia without difficulty and was taken to the PACU in a stable condition.? Plan for aftercare: Anterior hip precautions Weightbearing as tolerated Aspirin 81 twice per day for DVT prophylaxis Multimodal pain regimen with no IV opioids ordered Anticipate discharge home tomorrow Follow up at [facility] in 2 weeks Detailed postoperative instructions available at [email or web address]
--- NOTE | 2023-09-08 15:23 | PM.PN.1 ---
Subjective Subjective Interval history: Patient seen postoperatively. Reports mild pain in the right hip and minimal pain in the left hip. Dressings are both clean dry and intact. Flexing and extending hallux and ankle bilaterally. Able to raise her heel off the bed bilaterally. Carty remains in place which will be removed this afternoon. I plan to have her remain in the hospital for a minimum of 1 night and mobilize with physical therapy tomorrow in anticipation of eventual discharge home. We will recheck a hemoglobin in the morning. Exam Vital Signs (past 8 hours): - 09/08/23 10:07 09/08/23 14:30 09/08/23 14:35 Temperature 98.2 F 97.4 F L 97.5 F L Pulse Rate 79 85 78 Respiratory Rate 16 12 18 Blood Pressure 115/75 101/50 L 111/59 L Pulse Oximetry 100 98 98 Oxygen Delivery Method Room Air Room Air Room Air 09/08/23 14:41 09/08/23 14:52 Temperature 97.3 F L Pulse Rate 78 68 Respiratory Rate 18 12 Blood Pressure 112/65 103/46 L Pulse Oximetry 97 100 Oxygen Delivery Method Room Air Room Air Oxygen Delivery Method Room Air Objective Labs Labs: Laboratory Results - last 24 hr 09/08/23 09:45 Blood Type A Positive Antibody Screen Negative [facility] Medical History (Updated 08/29/23 @ 09:11 by Courtney Sandoval RN) Osteoarthritis Vitamin D3 deficiency Pelvic somatic dysfunction Bilateral groin pain Astigmatism of left eye Eczema (~1961) Asthma (~1966) Allergies (~1961) Surgical History (Updated 08/29/23 @ 09:11 by Courtney Sandoval RN) Hx of LASIK Anesthesia History of colonoscopy (~2011) History of hand surgery (~2002) History of tonsillectomy and adenoidectomy (~1966) Family History Father Leukemia Mother Hypertension Hyperlipidemia Sister Hypertension Grandmother Hypertension Grandfather Alzheimer's disease Grandmother Fall Social History household members: spouse and other Smoking Status: Never smoker alcohol intake: current Quality VTE Deep Vein Thrombosis/Pulmonary Embolism Present on Admission: No
[2023-09-08] MEDS: IBUPROFEN 600 MG TABLET PO ×2 (15:37→20:14)
[2023-09-08] MEDS: ACETAMINOPHEN 325 MG TABLET 650 MG PO ×2 (15:38→20:14)
[2023-09-08] MEDS: LACTATED RINGERS 1,000 ML 100 ML IV (15:38)
[2023-09-08] MEDS: TRAMADOL 50 MG TABLET PO ×2 (16:18→21:35)
[2023-09-08] MEDS: ONDANSETRON 4 MG ODT PO (16:18)
[2023-09-08] MEDS: ASPIRIN EC 81 MG TABLET PO (20:13)
[2023-09-08] MEDS: DOCUSATE 100 MG CAPSULE PO (20:14)
[2023-09-09] MEDS: ACETAMINOPHEN 325 MG TABLET 650 MG PO ×2 (02:25→08:56)
[2023-09-09] MEDS: IBUPROFEN 600 MG TABLET PO ×2 (02:25→08:56)
[2023-09-09] MEDS: LACTATED RINGERS 1,000 ML 100 ML IV (02:29)
[2023-09-09] MEDS: CEFAZOLIN 2 GM/100 ML PREMIX 100 ML IV (02:34)
--- NOTE | 2023-09-09 02:38 | PC.NURSE ---
Addendum entered by Sherrie Templeton R.N. 09/09/23 04:38: Blood pressure rechecked, 83/42 with MAP of 55. Patient placed in trendelenburg position. Contacted Dr. Vasquez and received order for LR 500 ml bolus. BP rechecked- 92/47, HR 80, MAP 62. Original Note: Blood pressure 90/57, HR 60, MAP 53. Asymptomatic. Has LR infusing at 100/hr. Notified hotel front office manager, Dr. Vasquez. He stated that since she is asymptomatic and already getting fluids, she doesn't need a bolus. Patient encouraged to drink fluids. Will recheck BP in 1 hour.
[2023-09-09 03:47] VITALS: BP 83/25; PULSE 81; RESP 16; TEMP 36.4; O2SAT 100
[2023-09-09] MEDS: LACTATED RINGERS 500 ML 1000 ML IV (04:01)
[2023-09-09 04:45] VITALS: BP 92/47
[2023-09-09 06:40] LABS: Hematocrit 22.3 % (36-46); Hemoglobin 7.5 g/dL (12.0-16.0)
[2023-09-09 07:00] VITALS: RESP 18
[2023-09-09 08:00] VITALS: BP 100/45; PULSE 73; RESP 16; TEMP 36.6; O2SAT 100
[2023-09-09] MEDS: ASPIRIN EC 81 MG TABLET PO (08:55)
[2023-09-09] MEDS: CHOLECALCIFEROL (VITAMIN D3) 5,000 UNIT TABLET 5000 UNIT PO (09:00)
[2023-09-09] MEDS: DOCUSATE 100 MG CAPSULE PO (09:38)
--- NOTE | 2023-09-09 10:00 | PT.IIE ---
Current Diagnoses Unilateral primary osteoarthritis, right hip (09/08/23) Unilateral primary osteoarthritis, left hip (09/08/23) Surgery Performed Operation Date: 09/08/23 10:45 Actual Procedures p Total Hip Arthroplasty/Anterior Approach(Bilateral) - Carlos Redman MD Surgical History (Last Updated 08/29/23 @ 09:11 by Courtney Sandoval, RN) Anesthesia History of colonoscopy (~2011) History of hand surgery (~2002) History of tonsillectomy and adenoidectomy (~1966) Hx of LASIK Medical History (Last Updated 08/29/23 @ 09:11 by Courtney Sandoval RN) Allergies (~1961) Asthma (~1966) Astigmatism of left eye Bilateral groin pain Eczema (~1961) Osteoarthritis Pelvic somatic dysfunction Vitamin D3 deficiency Physical Therapy Inpatient Evaluation/Re-Eval M1 PT/OT-IP Prior Functional Status Start: 09/09/23 13:24 Freq: NEEDED Status: Active Protocol: Document 09/09/23 10:00 AB (Rec: 09/09/23 13:42 AB [id number]) Medical Review Prior Functional Status Medical History Reviewed Yes Communication able to make needs known Mobility and Gait pt stated that she was modified independent with all mobilities and ambulation without AD Activities of Daily Living and IADL's per OT note: Pt has difficulty with socks and shoes due to pain. Social History Household Members spouse Living Arrangements Other Number of Floors (Floors) One Floor Number of Stairs To Enter/Railing? pt lives on a boat but plans to stay at the [facility] for ~ 3 weeks : pt is not sure what the set up at [facility] since she has not been there yet but stated that they got the handicapped access room. Home set up info below is regarding pt's house. Home Environment Standard Height Toilet,Walk in Shower,Built-In Shower Seat Home Equipment Front Wheel Walker,Hand Held Shower Additional Social History Comment pt has a toilet safety frame at home M2 PT-IP Current Condition Start: 09/09/23 13:24 Freq: NEEDED Status: Active Protocol: Document 09/09/23 10:00 AB (Rec: 09/09/23 13:42 AB [id number]) Physical Therapy Current Condition Current Condition Evaluation Date 09/09/23 Treatment Diagnosis s/p B TIM anterior; difficulty in walking Onset Date 09/08/23 M3 PT-IP Subjective Start: 09/09/23 13:24 Freq: NEEDED Status: Active Protocol: Document 09/09/23 10:00 AB (Rec: 09/09/23 13:42 AB [id number]) Subjective Physical Therapy Visit Type Type Initial Evaluation Visit Start Time 10:00 Visit Stop Time 10:45 Number of [employer] [facility] [employer] Visits 0 Physical Therapy Visit Comments Patient Comments agreeable to do PT Therapy Pain Assessment Pain When Pain Assessed At Rest Pain Present Pain Present Pain Reported Location Anterior hips/groin Intensity 4 Scale Used Numeric (0 - 10) Pain Behaviors Guarding,Holding Area Pain Management Techniques Apply Cold,Distraction, Modification of Treatment,Re- positioning,Timing of Activity with Medications M4 PT-IP Mobility and Gait Start: 09/09/23 13:24 Freq: NEEDED Status: Active Protocol: Document 09/09/23 10:00 AB (Rec: 09/09/23 13:42 [id number]) PT-Bed Mobility Assessment Supine to Sit Supine to Sit Standby Assistance Sit to Supine Sit to Supine Standby Assistance PT-Transfer Assessment Sit to and From Stand Sit to and from Stand Standby Assistance,1 Person Assistance,Use of Upper Extremities Equipment Transfer Assistive Device Gait Belt,Front Wheeled Walker Orthotic/Prosthetic Devices or Brace: No Transfers Transfer Destination Chair Transfer Technique ambulated Transfer Ability Level of Assist Standby Assistance,1 Person Assistance,Use of Upper Extremities Comments Mobility Comments pt supine in bed and agreeable to do PT. obtained PLOF and home set up from pt. post-op folder provided and reviewed contents. educated pt regarding B anterior hip precautions. BP in supine: 118/51. pt completed supine to sit SBA. able to sit on EOB SBA. slight dizziness but dissipated after a few seconds of sitting up. BP in sitting : 107/54. pt sat on EOB for 2 more mintures and BP checked again: 109/51. pt completed sit to stand SBA and ambulated in room using FWW ~ 50 ft. pt sat on the chair. BP checked : 105/60. pt completed sit to stand again SBA and ambulated to EOB using FWW SBA. completed sit to supine SBA and cues provided for techniques. pt agreed to sit back on chair. supine to sit SBA. ambulated to the chair using fWW SBA. positioned pt on the chair. call light and table placed within reach. ice pack and cold therapy strap folding machine operator. pt without further concerns. Gait Assessment Gait Gait Assistance Required: Standby Assistance Distance (Feet) 60 Able to Maintain Weight Bearing Status Yes During Gait Assistive Devices Assistive Device Gait Belt,Front Wheeled Walker Orthotic/Prosthetic Devices or Brace: No Gait Deviations General Gait Pattern Decreased Feet Clearance,Step- to Gait Factors Limiting Gait Function Factors Limiting Gait Function Decreased Activity Tolerance, Decreased Strength,Limited Range of Motion,Pain,Poor Balance,Poor Safety Awareness PT-Balance Assessment Sitting Balance and Reactions Static Sitting Balance Ability Normal Dynamic Sitting Balance Ability Normal Standing Balance and Reactions Static Standing Balance Ability Good Dynamic Standing Balance Ability Fair Device Used FWW M5 PT-IP Objective Assessments Start: 09/09/23 13:24 Freq: NEEDED Status: Active Protocol: Document 09/09/23 10:00 AB (Rec: 09/09/23 13:42 AB [id number]) Orientation Orientation/Cognition Level of Alertness Alert Orientation Name,Place,Situation Language Function Ability No Deficits Noted Safety Awareness Understands Safety Issues Memory Description No Deficits Noted Strength Lower Extremity Strength Assessment Bilaterally Impaired Comments Strength Comments RLE: 4-/5 LLE: 3+/5 Coordination Assessment Gross Coordination Gross Coordination WNL Sensation Assessment Sensation Gross Sensation WNL Muscle Tone Muscle Tone WNL Yes M6 PT-IP Treatment Start: 09/09/23 13:24 Freq: NEEDED Status: Active Protocol: Document 09/09/23 10:00 AB (Rec: 09/09/23 13:42 AB [id number]) Physical Therapy Treatment Education Education Provided Precautions,Weight Bearing Status,Post-Op Packet,Safety M7 PT-IP Assessment and Plan Start: 09/09/23 13:24 Freq: NEEDED Status: Active Protocol: Document 09/09/23 10:00 AB (Rec: 09/09/23 13:42 AB [id number]) PT Summary Assessment and Plan Potential Rehabilitation Potential Fair Status of Condition at Evaluation Stable Summary Impairments Pain,ROM,Strength,Balance, Coordination,Sensation,Tone, Cognition,Bed Mobility, Transfers,Gait,Activity Tolerance Assessment Summary pt is a 62 y/o F s/p bilateral TIM anterior approach. pt has anterior hip precautions on BLE and is WBAT. pt requiring SBA with mobility using FWW and plans to go home with spouse to assist her. [place] but will be staying at the [facility] for ~ 3 weeks handicapped accessible room. pt has outpt set up. pt may go home when medically stable. Goals Bed Mobility Goal Independent Transfer Goal Independent,Front Wheeled Walker Gait Goal Independent,Front Wheel Walker Gait Distance 250 Days to Meet Goals 3 Frequency of Treatment Frequency Of Treatment Twice a Day Treatment Plan Physical Therapy Treatment Plan Bed Mobility Training,Transfer Training,Gait Training, Therapeutic Exercise,Balance Retraining,Post Op Education, Discharge Planning,Hot or Cold Pack,Neuromuscular Re-ed, Coordination Retraining,Manual Therapy Precautions Anterior Hip Precautions No Hip Extension,No Hip External Rotation Weight Bearing Status Weight Bearing Status Weight Bear as Tolerated Allowed Weight Bearing Amount (enter % BLE WBAT or #) (%) Recommendations To Nursing Amount of Assist Needed 1 Person Assist Discharge Recommendations PT Discharge Recommendations Home with Assistance, Outpatient PT Transportation Needs at Discharge Private Vehicle
--- NOTE | 2023-09-09 10:35 | PM.PN.1 ---
Subjective Subjective Interval history: Patient seen this morning. Ambulating with physical therapy when I arrived. Both dressings clean dry and intact. Sensory motor function grossly intact in the bilateral lower extremities. Walking with a walker without assistance. Reports pain is well controlled. She took only tramadol last night. Hemoglobin this morning was 7.5 but she denies any symptomatic lightheadedness when standing. A Carty catheter is in place which had remained in place until her fresh mobilization which occurred as I was visiting with her this morning. We will pull the Carty catheter now. We will plan for likely discharge home later today Exam Vital Signs (past 8 hours): - 09/09/23 03:47 09/09/23 04:45 09/09/23 07:00 Temperature 97.6 F Pulse Rate 81 Respiratory Rate 16 18 Blood Pressure 83/25 L 92/47 L Pulse Oximetry 100 Oxygen Flow Rate 0 09/09/23 08:00 Temperature 97.8 F Pulse Rate 73 Respiratory Rate 16 Blood Pressure 100/45 L Pulse Oximetry 100 Oxygen Flow Rate Oxygen Delivery Method Room Air Oxygen Flow Rate 0 Objective Labs 09/09/23 06:00 Labs: Laboratory Results - last 24 hr 09/08/23 09/09/23 09:45 06:00 Hgb 7.5 L Hct 22.3 L Blood Type A Positive Antibody Screen Negative [facility] Medical History (Updated 08/29/23 @ 09:11 by Courtney Sandoval RN) Osteoarthritis Vitamin D3 deficiency Pelvic somatic dysfunction Bilateral groin pain Astigmatism of left eye Eczema (~1961) Asthma (~1966) Allergies (~1961) Surgical History (Updated 08/29/23 @ 09:11 by Courtney Sandoval RN) Hx of LASIK Anesthesia History of colonoscopy (~2011) History of hand surgery (~2002) History of tonsillectomy and adenoidectomy (~1966) Family History Father Leukemia Mother Hypertension Hyperlipidemia Sister Hypertension Grandmother Hypertension Grandfather Alzheimer's disease Grandmother Fall Social History household members: spouse and other Smoking Status: Never smoker alcohol intake: current Quality VTE Deep Vein Thrombosis/Pulmonary Embolism Present on Admission: No
--- NOTE | 2023-09-09 10:37 | PM.DS.1 ---
History of Present Illness History of Present Illness Chief complaint: OPB Narrative: Ghislaine is a very pleasant 62-year-old female who is postop day # 1 status post bilateral total hip arthroplasties, anterior approach by Dr. Redman. Pain is mild and well-controlled with oral pain medication. She has her postop pain medications at home already, has postop physical therapy appointments scheduled with our office already as well. Lives at home with who is willing and able to aid in patient's postop care. Due to the fact that they live on a boat and she has bilateral hip arthroplasties they have rented a motel room for the first 3 weeks postop. She still has Carty catheter in place as she was not able to mobilize much yesterday d/t post-op hypotension. Has not seen PT yet today. She has no specific complaints or concerns for me this morning. Denies fever, chills, chest pain, shortness breath, nausea, or vomiting. Operative Date/Time/Diagnoses Date of procedure: 09/08/23 Pre-op diagnosis: Primary right hip osteoarthritis Primary left hip osteoarthritis Post-op diagnosis: same Procedure & Clinicians Procedure: Right total hip arthroplasty Left total hip arthroplasty Same procedure as scheduled: Yes Surgeon: Carlos Redman Arboriculturist: Artur Martins Anesthesia Type: General and Local Discharge Providers Provider Discharge Date: 09/09/23 Primary care physician: Artur Kc DO Consults: 09/08/23 06:00 Consult to Anesthesiology Routine Comment: Consulting Provider: Anesthesiologist Reason for consultation: Regional block for post operative pain control 09/08/23 15:19 Consult to Discharge Planning Routine Comment: Consult to Occupational Therapy Evaluate & Treat Comment: Physician Instructions: Evaluate and treat Consult to Physical Therapy Evaluate & Treat Comment: Physician Instructions: post op TIM protocol Discharge provider: Dariela Sheffield PA-C Summary Hospital Course Discharge Diagnosis: Stable s/p bilateral TIM anterior. Hospital Course: Hospital course complicated by postoperative hypotension. Exam Vital Signs (past 8 hours): - 09/09/23 03:47 09/09/23 04:45 09/09/23 07:00 Temperature 97.6 F Pulse Rate 81 Respiratory Rate 16 18 Blood Pressure 83/25 L 92/47 L Pulse Oximetry 100 Oxygen Flow Rate 0 09/09/23 08:00 Temperature 97.8 F Pulse Rate 73 Respiratory Rate 16 Blood Pressure 100/45 L Pulse Oximetry 100 Oxygen Flow Rate Oxygen Delivery Method Room Air Oxygen Flow Rate 0 Narrative Exam Narrative: Awake, alert, oriented. Resting comfortably in bed during our interview this morning. at bedside. Resp Effort & Inspection: normal respiratory effort and able to speak in complete sentences Cardio Rate: regular rate Other: Brisk capillary refill Skin Other: Intact, clean, dry Aquacel dressings over bilateral anterior hips. No drainage left hip, scant bloody drainage right hip. Neuro General: patient alert, patient awake and patient oriented x3 Extrem Other: 5/5 strength with DF, PF, EHL bilaterally Calf soft and nontender bilaterally Gross sensation intact throughout bilateral lower extremities. SCDs on and functioning. Psych Appearance: grossly normal Speech and Movement: speech and movement normal Objective Labs 09/09/23 06:00 Labs: Laboratory Results - last 24 hr 09/08/23 09/09/23 09:45 06:00 Hgb 7.5 L Hct 22.3 L Blood Type A Positive Antibody Screen Negative [facility] Medical History (Updated 08/29/23 @ 09:11 by Courtney Sandoval RN) Osteoarthritis Vitamin D3 deficiency Pelvic somatic dysfunction Bilateral groin pain Astigmatism of left eye Eczema (~1961) Asthma (~1966) Allergies (~1961) Surgical History (Updated 08/29/23 @ 09:11 by Courtney Sandoval RN) Hx of LASIK Anesthesia History of colonoscopy (~2011) History of hand surgery (~2002) History of tonsillectomy and adenoidectomy (~1966) Family History Father Leukemia Mother Hypertension Hyperlipidemia Sister Hypertension Grandmother Hypertension Grandfather Alzheimer's disease Grandmother Fall Social History household members: spouse and other Smoking Status: Never smoker alcohol intake: current Discharge Assessment & Plan Assessment and Plan Assessment: Stable status post bilateral total hip arthroplasties, anterior approach. Plan of Treatment: 1) Remove Carty catheter today pending adequate mobilization with physical therapy. Plan to discharge to home today with pending PT evaluation/ appropriate mobilization and voiding trial s/p Carty removal. 2) Continue multimodal pain management with ice to the hips for additional pain control. Has post-op pain medications at home already, has ice machine at home already. 3) ASA b.i.d. for DVT prophylaxis. 4) Start outpatient physical therapy to work on range of motion and mobility. 5) Keep dressings intact, clean, dry until 2 week postop appointment. No soaking the incision sites in pools or tubs. No topical ointments or creams to the incision sites. 6) Follow up at [facility] in 2 weeks for a postop appointment and wound check. All patient's questions were answered, they demonstrates understanding and are in agreement with the plan. Call our office if any questions or concerns arise. Discharge Plan Discharge Plan Patient Disposition: Home Provider Discharge Comment: [email or web address] Discharge orders & Medications Discharge Orders: Discharge (Order); Ordered 09/09/23 Ordered By: Dariela Sheffield Prescriptions: New tramadol 50 mg Tablet 50 mg PO Q6HR Qty: 30 0RF ondansetron 4 mg Tablet,Disintegrating 4 mg PO Q8HR PRN (Reason: nausea and vomiting) Qty: 10 0RF docusate sodium 100 mg Capsule 100 mg PO BID PRN (Reason: constipation) Qty: 60 0RF acetaminophen 325 mg Tablet 650 mg PO Q6H Qty: 90 0RF aspirin 81 mg Tablet,Delayed Release (Dr/Ec) 81 mg PO BID Qty: 90 0RF ibuprofen 600 mg Tablet 600 mg PO Q6H Qty: 60 0RF Continued epinephrine 0.3 mg/0.3 mL auto-injector 0.3 mg IM ONCE Qty: 2 1RF Rx Instructions: as a single dose; may repeat once Dupixent Syringe 300 mg/2 mL syringe 300 mg SUBCUT Q2W Patient Comments: [NO ORIGINAL SIG] cholecalciferol (vitamin D3) 125 mcg (5,000 unit) capsule 125 mcg PO DAILY Follow up/Referrals: Carlos Redman MD [Physician] - (Follow up at [facility] as scheduled in 2 weeks. 09/20/2023 at 10:30 a.m.) Artur Kc DO [Primary Care Provider] - Diet/Activity/Treatments Diet: Diet as Tolerated Activity: Weightbearing as tolerated, maintain anterior hip precautions. Cold/Heat Therapy: Ice to the hip for additional pain control Skin/Wound/Dressing Care Report to your healthcare provider any signs of infection, such as:: chills, fever, night sweats, unusual drainage and unusual redness Dressing: Keep dressing intact, clean and dry until 2 week post-op appointment. No soaking the incision site in pools or tubs. No topical ointments or creams to the incision site. Visit Report/Discharge Packet Instructions: DI for Hip Replacement, DI for Prescription Opioid Use Stand Alone Forms: Patient Portal/API Discharge Data Primary Care Provider: Artur Kc Attending Provider: Carlos Redman VTE Deep Vein Thrombosis/Pulmonary Embolism Present on Admission: No
[2023-09-09] MEDS: [UNRECOGNIZED DRUG - OTHER] 300 EACH IM (11:36)
--- NOTE | 2023-09-09 11:38 | OT.IP.EVAL ---
Current Diagnoses Unilateral primary osteoarthritis, right hip (09/08/23) Unilateral primary osteoarthritis, left hip (09/08/23) Surgery Performed Operation Date: 09/08/23 10:45 Actual Procedures p Total Hip Arthroplasty/Anterior Approach(Bilateral) - Carlos Redman MD Past Medical History (Last Updated 08/29/23 @ 09:11 by Courtney Sandoval RN) Allergies (~1961) Asthma (~1966) Astigmatism of left eye Bilateral groin pain Eczema (~1961) Osteoarthritis Pelvic somatic dysfunction Vitamin D3 deficiency Surgical History (Last Updated 08/29/23 @ 09:11 by Courtney Sandoval RN) Anesthesia History of colonoscopy (~2011) History of hand surgery (~2002) History of tonsillectomy and adenoidectomy (~1966) Hx of LASIK Occupational Therapy Inpatient Evaluation/Re-Eval M1 PT/OT-IP Prior Functional Status Start: 09/09/23 11:46 Freq: NEEDED Status: Active Protocol: Document 09/09/23 11:46 [facility] (Rec: 09/09/23 11:56 [facility] [id number]) Medical Review Prior Functional Status Communication Independent Mobility and Gait Independent with no device but limited distance and standing due to pain per pt. Activities of Daily Living and IADL's Pt has difficulty with socks and shoes due to pain. Social History Household Members spouse,other Living Arrangements Other Number of Stairs To Enter/Railing? Pt to be staying at a motel as prior lives on a boat. Home Equipment Front Wheel Walker,Four Wheel Walker,Leg Medical Doctor Md/Medical Director Additional Social History Comment Pt has a toilet safety frame. M2 OT-IP Current Condition Start: 09/09/23 11:46 Freq: Status: Active Protocol: Document 09/09/23 11:46 [facility] (Rec: 09/09/23 11:56 [facility] [id number]) Occupational Therapy Current Condition Current Condition Evaluation Date 09/09/23 Treatment Diagnosis S/P Bilateral TIM anterior approach Post Operative Precautions Anterior Hip Precautions No Hip Extension,No Hip External Rotation M3 OT- IP Subjective and Pain Start: 09/09/23 11:46 Freq: Status: Active Protocol: Document 09/09/23 11:46 [facility] (Rec: 09/09/23 11:56 [facility] [id number]) OT- Subjective Occupational Therapy Visit Type Type Initial Evaluation Visit Start Time 11:10 Visit Stop Time 11:38 Occupational Therapy Visit Comments Patient Comments Pt agreed to get up for OT eval. Patient/Caregiver Goals To go home. OT Pain Assessment Pain When Pain Assessed At Rest Pain Present Pain Present Pain Reported Location Anterior hips/groin Intensity 5 Scale Used Numeric (0 - 10) M4 OT- IP ADL's Start: 09/09/23 11:46 Freq: Status: Active Protocol: Document 09/09/23 11:46 [facility] (Rec: 09/09/23 11:56 [facility] [id number]) OT [id number]-Mylb-Yuyiezv General Evaluation Self-Feeding Ability Independent OT ADL-Grooming General Evaluation Grooming Ability Independent Comments OT Grooming Comments Able to do while standing with the FWW. OT ADL-Oral Care General Eval Oral Care Ability Independent OT ADL-Dressing General Eval Lower Body Dressing Ability Standby Assistance,Maximum Assistance Areas Needing Assistance Socks,Shoes Comments OT Dressing Comments Able to show pt use of oxygen equipment preparer and sock aid and able to do on her own. Pt's states will assist as needed. Suggested able to go to [employer] to get equipment today if needed. OT ADL-Toileting Comments OT Toileting Comments Pt able to reach back appropriately to wipe via simulation while seated on the recliner. Suggested standing to wipe can be easier and use of wet wipes can be helpful. Pt has to get up 2-3 times at night and suggested pads/ brief so not having to hurry to the bathroom. OT ADL-Bathing Comments OT Bathing Comments Not performed. M5 OT- IP IADL's Start: 09/09/23 11:46 Freq: Status: Active Protocol: Document 09/09/23 11:46 [facility] (Rec: 09/09/23 11:56 [facility] [id number]) OT-Instrumental Activities of Daily Living Home Safety Awareness Awareness of Need for Assistance at Home Good Awareness Ability to Problem Solve Emergency Able to Problem Solve Situations Home Safety Comments Pt's to assist. M6 OT- IP Functional Cognition Start: 09/09/23 11:46 Freq: Status: Active Protocol: Document 09/09/23 11:46 [facility] (Rec: 09/09/23 11:56 [facility] [id number]) Cognitive Factors Limiting Selfcare Function Cognitive Ability Level of Alertness Alert Patient Orientation Name,Age,Birthday,Month,Date, Year,Day of Week,Place, Situation Attention Span Ability Capable of Focused Attention, Capable of Sustained Attention Ability to Follow Commands Able to Follow Multi-Step Commands Safety Awareness No Deficits Noted Cognitive Comments Cognitive Assessment Comments Pt having good safety awareness for all hip precaution needs. OT- Vision and Hearing OT- Hearing Assessment OT- Hearing Assessment WFL M7 OT- IP Mobility and Balance Start: 09/09/23 11:46 Freq: Status: Active Protocol: Document 09/09/23 11:46 [facility] (Rec: 09/09/23 11:56 [facility] [id number]) OT-Transfer Assessment Sit to and From Stand Sit to and from Stand Standby Assistance Transfers Transfer Ability Standby Assistance Technique Transfer Destination Bed Transfer Technique Stand Step Pivot Devices Transfer Assistive Devices None,Front Wheeled Walker Comments Mobility Comments SBA to stand up and get to the sink and back with FWW. Pt's there to assist. Pt not wanting to use the gait belt at this time. Able to show pt's if not having the gait belt on how to assist her at her hips if needed. OT- Balance Assessment Sitting Balance and Reactions Static Sitting Balance Ability Normal Dynamic Sitting Balance Ability Good Standing Balance and Reactions Static Standing Balance Ability Good Dynamic Standing Balance Ability Fair+ M8 OT- IP Objective Assessments Start: 09/09/23 11:46 Freq: Status: Active Protocol: Document 09/09/23 11:46 [facility] (Rec: 09/09/23 11:56 [facility] [id number]) OT Gross Range of Motion Upper Extremity Range of Motion Assessment Within Functional Limits OT Strength Upper Extremity Strength Assessment Within Functional Limits M9 OT- IP Assessment and Plan Start: 09/09/23 11:46 Freq: Status: Active Protocol: Document 09/09/23 11:46 [facility] (Rec: 09/09/23 11:56 [facility] [id number]) OT Summary Assessment and Plan Potential Rehabilitation Potential Excellent Analytic Complexity at Evaluation Low Summary OT Impairments Pain,Functional Mobility, Dressing,Toileting,Bathing, Toilet Transfers,Shower Transfers Progress Towards Goals Progressing Toward Goals Assessment Summary Pt low complexity and doing well. Able to go over LB dressing equipment and suggestions for toileting and bathing needs. Pt to go to a motel initially for a few weeks with her and have outpt PT. Goals Toileting Goal Independent Bathing Goal Standby Assistance Toilet Transfer Goal Independent Shower Transfer Goal Independent Days to Meet Goals 4 Frequency of Treatment Frequency Of Treatment Once a Day Treatment Plan OT Treatment Plan ADL Training,Functional Mobility,Patient/Family Education,Discharge Planning Discharge Recommendations OT Discharge Recommendations Home with Assistance, Outpatient PT Home Equipment Needs LB dressing equipment, pads/ brief Transportation Needs at Discharge Private Vehicle
--- NOTE | 2023-09-09 14:41 | CM.DANOTE ---
Initial DCP Assessment Visit Note Reviewed EMR and team rounds for status updates. Met with pt and spouse at bedside to introduce self and role, pt was found to be sitting upright in bed, expressing readiness for d/c, pain is well controlled. Pt and spouse live independently on a boat here in [place]. They have rented a motel for the next 3-weeks in order to recover postoperatively. Spouse will transport once she is medically cleared for d/c, which is likely later this afternoon once Surgery meet with her again for OP f/u instructions. Payor: [place] of [place] [employer] Attending: Dr. Redman Pt is a 62 year-old F post-op day 1 following her bilateral total hip arthroplasties yesterday. She has a hx of bilateral osteoarthritis which has not improved with conservative methods. She is recovering well postoperatively, declined any d/c resources or needs for assistance at this time. Discharge Planning/Care Management CM Discharge Assessment Start: 09/09/23 12:02 Freq: Status: Active Protocol: Document 09/09/23 12:03 [facility] (Rec: 09/09/23 12:04 [facility] [id number]) Discharge Planning Assessment Assigned Siphoner LAUREN Loomis Advance Directives? No History Provided By Patient,Medical Record Has Patient been admitted in last 30 No days? Prior Living Arrangements Other Comment LIVES ON BOAT Household Members spouse,other Type of transporation used prior to Drives own vehicle admit Independent with ADL's Yes Is patient alert and oriented? 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 # of Siphoner Review Status In Process Please Provide Date Initial DC 09/09/23 Assessment Was Performed Pre-Anesthesia Assessment Start: 08/29/23 08:39 Freq: Status: Complete Protocol: Document 08/29/23 08:39 [facility] (Rec: 08/29/23 09:18 [facility] [id number]) Pre-Anesthesia Assessment Patient Information Reviewed Via Phone Assessment Assessment Completed With Patient Diagnostic Results BMP/CMP,CBC,EKG,Other Comment Labs/EKG @ [facility] 07/19/23, carotid US @ [facility] 08/02/23 Primary Care Provider Artur Kc Comment Pre-op 07/27/23, clearance form 07/18/23 scanned -Carotid US < 50% john stenosis Medical Clearance Received Yes Seen Specialist in Last 12 Months Yes Specialist Seen Orthopedist Primary Language Macedonian Exhibits Coordinator Required No Height 167.64 cm Weight 62.596 kg Body Mass Index (BMI) 22.2 Hearing Ability Normal Visual Impairment No Limitations Visual Assist None Dentition Type Teeth, Natural Present Barriers to Learning None Hx Anesthesia Reactions No Hx Family Anesthesia Reaction No Hx Malignant Hyperthermia No Hx Blood Transfusions No Anesthesia Review Requested No Room Service Supervisor No alcohol intake current alcohol intake frequency a few times a week Smoking Status Never smoker Substance Use Type does not use Pain Present Pain Reported Musculoskeletal Symptoms Abnormal Gait,Difficulty Walking,Joint Pain History of Falling (Recent or History of No ) Patient is completely paralyzed or No completely immobile Mental Status Oriented to own ability Is patient on oxygen? No Does patient have LYN/SOB No Hx Sleep Apnea No Currently Taking a Beta Trisha No Can You Climb a Flight of Stairs Without Yes SOB Hx Chest Pain No Hx SOB No Hx Syncope or Dizziness No Anti-Coagulant Therapy No Has a Paint Line Production Supervisor No Cardiac Testing Yes: Carotid US 08/02/23 <50% bilaterally Hx Pacemaker/ICD No Pacemaker Rep Required? No Cardiac Clearance Received No Diet Type At Home Regular Dysphagia No Gastrointestinal Symptoms None Chronic UTI No Urinary Catheter Present No Hx Urinary Self Catheterization No Diabetes No HgbA1C 5.4 Date 07/19/23 Patient No Lactating No Hx Drug Resistant Organism No Presence of External or Internal Medical No Devices Received a COVID vaccine? Yes Received all doses? No Marital Status Lives With spouse,other Comment Lives on a boat Number of Floors (Floors) Two Floors Support System Spouse Does the Patient Have Assistance After Yes Surgery Patient Discharge Plan Description Other Comment Plans to DC to a motel w/ x 3 weeks post-op Feels Safe in Current Environment Yes Been Physically Hurt or Threatened By a No Person in Current Environment Do you have thoughts of harming yourself None or others? Are you currently considering suicide? No Do you have a plan to hurt yourself or No Plan others? Do You Have Any Spiritual Beliefs That No May Affect Your HC Choices? Do You Have Any Cultural Practices That No May Affect Your HC Choices? Comment [place] Who Can We Speak to About Patient's Care Family, friends Identifying Code for Release of Patient Declines to issue Information Health Care Proxy/Next of Kin Mychal () Health Care Proxy Emergency Contact Name Mychal () Emergency Contact Advance Directives? No Power of Outsole Leveler No PAC Instructions Do not shave/clip surgical site,Durable medical equipment ,Medications to take/avoid, Nasal antibiotic,No ETOH/ petroleum product on skin DOS, NPO,Post-op transportation,Pre -op antibiotic,Pre-surgical wash,Sensory aids,Sturdy shoes /comfortable clothes,Do not bring valuables and remove jewelry
--- NOTE | 2023-09-09 15:14 | PC.NURSE ---
Pt is doing well w/ PT Bilateral aquacell dsg CDI. D/C orders received. Home instructions given w/ understanding Pt escorted by staff via W/C to waiting vehicle D/C in stable post op status.
== END 2023-09-09 14:25 | disposition home or self-care (01) ==
LOC: OR 09:25 → AC 09:27
PROVIDERS: Family Provider Family Medicine; PCP Family Medicine; Referring Provider Orthopaedic Surgery Adult Reconstructive Orthopaedic Surgery; Visit Provider Orthopaedic Surgery Adult Reconstructive Orthopaedic Surgery
PROC: (CPT 27130; principal; 2023-09-08 10:45)
DX: M16.0 Bilateral primary osteoarthritis of hip (principal)
CPT/HCPCS: 27130; 36415; 73503; 73522; 76000; 85014; 85018; 86850; 86900; 86901; 97161; 97165; 97530; 97535; C1776; J0690; J1100; J1170; J2405; J2704; J3010; P9045